=== PATIENT | female | born 1970 | race Caucasian/White ===

== ENCOUNTER 2019-08-01 17:42 | Emergency (ER) | payer MEDICARE, SELFPAY ==
--- NOTE | ~2019-08-01 | XR_ITS ---
EXAMINATION: XR knee RT 3V DATE: 08/01/2019 18:35 INDICATION: 2 days of infrapatellar anterior right knee pain TECHNIQUE: Anteroposterior, oblique and crosstable lateral views of the right knee were obtained COMPARISON: None. FINDINGS: Alignment is normal. No fracture. No joint effusion/layering lipohemarthrosis. Joint space narrowing and prominent marginal osteophytes at the patellofemoral compartment. There is also a central subcho ndral osteophyte along the trochlear groove. Additional small to moderate marginal osteophytes in the medial and lateral compartments. There is at least mild joint space narrowing the medial compartment although severity of joint space narrowing can be underestimated on nonweightbearing imaging. Soft t issues are unremarkable. IMPRESSION: 1. Tricompartmental osteoarthritis at the right knee, moderate to severe in the patellofemoral compar tment. Reviewed, dictated and finalized at location A. TRICIAN YARD IMPRESSION: 1. Tricompartmental osteoarthritis at the right knee, moderate to severe in the patellofemoral compartment.
[2019-08-01 18:11] VITALS: BP 113/57; PULSE 75; RESP 17; TEMP 37.1; O2SAT 100
[2019-08-01] MEDS: IBUPROFEN 400 MG TABLET 800 MG PO (18:33)
--- NOTE | 2019-08-01 19:13 | ED.GENADULT ---
HPI - General Adult General Chief complaint: Urogenital-Female Stated complaint: R KNEE PAIN X2D Time Seen by Provider: 08/01/19 18:04 History of Present Illness HPI narrative: Patient is a 49-year-old female who presents the ER with right knee pain. She was standing on her couch couple days ago putting up curtains is unsure if she injured it at that time. It took 2 days until she developed the knee pain across the anterior joint line of the right knee. She has chronic lower extremity numbness from her diabetic neuropathy but has no new numbness. She is without any chest pain/shortness of breath/erythema to the right lower extremity or calf pain. Pain is better with resting. Patient also reports urinary frequency and urgency as well as dysuria. She is afebrile. Related Data Home Medications Medication Instructions Recorded Confirmed ascorbic acid (vitamin C) 1,500 mg 2,000 mg PO DAILY 04/06/19 05/17/19 tablet,extended release diazepam 5 mg tablet 5 mg PO TID PRN 04/06/19 05/17/19 aspirin 325 mg tablet 325 mg PO DAILY 04/08/19 05/17/19 blood sugar diagnostic #10 each 04/08/19 05/17/19 calcium carbonate 600 mg calcium 600 mg PO DAILY 04/08/19 05/17/19 (1,500 mg) tablet carbamazepine 300 mg 400 mg PO BID cap 04/08/19 05/17/19 capsule,extended release [id number] cholecalciferol (vitamin D3) 10 400 unit PO BID cap 04/08/19 05/17/19 mcg (400 unit) capsule duloxetine 60 mg capsule,delayed 60 mg PO DAILY 04/08/19 05/17/19 release multivitamin 1 tablet PO DAILY 04/08/19 05/17/19 quetiapine 400 mg tablet,extended 600 mg PO QPM tablet 04/08/19 05/17/19 release 24 hr sertraline 100 mg tablet 100 mg PO BID tablet 04/08/19 05/17/19 sumatriptan succinate 100 mg tablet 100 mg PO ONCE PRN 04/08/19 05/17/19 vitamin B complex 100 2-herbs 100 100 tablet PO DAILY 04/08/19 05/17/19 mg tablet Adults Multivitamin 1 tab-cap PO DAILY 05/17/19 05/17/19 Allergies Allergy/AdvReac Type Severity Reaction Status Date / Time cephalexin Allergy Severe Violently Verified 04/10/19 14:47 ill Sulfa (Sulfonamide Allergy Mild Unknown Verified 05/17/19 19:13 Antibiotics) buspirone Allergy Unknown Unknown Verified 05/17/19 19:13 ephedrine Allergy Unknown Unknown Verified 05/17/19 19:13 hydrocodone [From Vicodin] Allergy eyes swell Verified 04/10/19 14:47 sibutramine [From Meridia] Allergy unknown Verified 04/10/19 14:47 sulfite Allergy Unknown Verified 04/10/19 14:47 tramadol Allergy seizure Verified 04/10/19 14:47 Review of Systems Review of Systems: All systems reviewed & are unremarkable except as noted in HPI and below Constitutional: Constitutional: Denies fever(s) and Denies headache(s) Musculoskeletal: Musculoskeletal: Denies deformity, Reports arthralgias, Denies joint swelling, Denies muscle cramps, Denies muscle weakness and Reports numbness (chronic) Psychiatric: Psychiatric: Reports anxiety PMFSH Social History Social History Social History: The patient lives at home with her of 21 years. She is on disability. She is a former smoker and used to smoke 2 and half packs of cigarettes a day for 17 years. She quit smoking in 1994. She stated that she started smoking at 8 years of age. She quit drinking alcohol altogether 1993. She denies a history of heavy alcohol use in the past. She denies any illicit substance use history. Smoking packs per day: 2 Smoking cigarettes per day: 40.0 Years smoked: 17 Smoking pack-years: 34.00 Smoking status: Former smoker Tobacco type: cigarettes Second hand tobacco smoke exposure: Yes Smoking end date: 06/06/96 Alcohol intake: never Substance use: never Gender identity (if verbalized by the patient): Female Spiritual care concerns: No Agree to blood products: No Exam Narrative: Exam Narrative: GENERAL: Well-appearing, morbidly obese, and in no acute distress. HEAD: Normoceph
[2019-08-01 19:17] LABS: Add Urine Microscopic? YES; Appearance Urine Clear (Clear); Bilirubin Urine Negative (Negative); Blood Urine Negative (Negative); Color Urine Yellow (Yellow); Glucose Urine UA Negative (Negative); Ketones Urine Negative (Negative); Leukocyte Esterase Ur Negative LEU/UL (Negative); Mucus Urine Rare /lpf; Nitrate Urine Negative (Negative); Protein Urine Negative (Negative); RBC Urine 0-2 /hpf (0-2); Specific Grav Ur 1.014 (1.001-1.035); Squamous Epithelial Cell Urine Rare /hpf (Few); Urobilinogen Urine Negative mg/dL (<2.0); WBC Urine 0-3 /hpf
[2019-08-01] MEDS: LORAZEPAM 0.5 MG TABLET PO (19:28)
[2019-08-01 19:46] VITALS: BP 113/56; PULSE 76; RESP 16; TEMP 36.8; O2SAT 100
== END 2019-08-01 19:48 | disposition home or self-care (01) ==
PROVIDERS: Emergency Provider Emergency Medicine; PCP Internal Medicine
DX: M25.561 Pain in right knee (principal); Z87.891 Personal history of nicotine dependence
CPT/HCPCS: 51701; 73562; 81001; 99283; A9270

== ENCOUNTER 2019-10-05 13:33 | Outpatient (CLI) | payer MEDICARE, SELFPAY ==
[2019-10-08 20:57] LABS: Alpha-1-Antitrypsin, QN 150 mg/dL (83-199)
== END 2019-10-05 13:34 | disposition home or self-care (01) ==
PROVIDERS: PCP Internal Medicine; Visit Provider Internal Medicine Critical Care Medicine
DX: J44.9 Chronic obstructive pulmonary disease, unspecified (principal)
CPT/HCPCS: 36415; 82103; 82104

== ENCOUNTER 2019-11-28 11:28 | Outpatient (CLI) | payer MEDICARE, SELFPAY ==
--- NOTE | ~2019-11-28 | XR_ITS ---
XR tibia fibula RT 2V DATE: 11/28/2019 12:30 INDICATION: Leg pain TECHNIQUE: AP and lateral views COMPARISON: None FINDINGS: There are osteoarthritic changes at the knee joint including periarticular spurring at the medial and lateral compartments. Normal alignment at the knee and ankle joints. No fracture, dislocat ion, periosteal reaction or bone destruction. IMPRESSION: Osteoarthritis at the knee Reviewed, dictated and finalized at location A. IMPRESSION: Osteoarthritis at the knee
[2019-11-28 12:29] LABS: Add Urine Microscopic? NO; Appearance Urine Clear (Clear); Bilirubin Urine Negative (Negative); Blood Urine Negative (Negative); Color Urine Yellow (Yellow); Glucose Urine UA Negative (Negative); Ketones Urine Negative (Negative); Leukocyte Esterase Ur Negative LEU/UL (Negative); Nitrate Urine Negative (Negative); Protein Urine Negative (Negative); Specific Grav Ur 1.021 (1.001-1.035); Urobilinogen Urine Negative mg/dL (<2.0)
[2019-11-28 12:54] LABS: Erythrocyte Sedimentation Rate > 140 mm/hr (0-20)
[2019-11-28 13:20] LABS: Alanine Aminotransferase 17 U/L (4-35); Albumin Level 4.3 g/dL (3.5-5.1); Alkaline Phosphatase 131 U/L (38-126); Aspartate Amino Transferase 23 U/L (14-36); Bilirubin,Total 0.2 mg/dL (0.2-1.3); Blood Urea Nitrogen 29 mg/dL (7-17); Calcium 10.2 mg/dL (8.4-10.2); Carbon Dioxide 27 mmol/L (22-30); Chloride 105 mmol/L (98-107); Cholesterol 259 mg/dL (0-200); Estimated Glomerular Filt Rate 59; Glucose 130 mg/dL (65-105); HDL Direct 43 mg/dL; Potassium 4.9 mmol/L (3.4-5.0); Sodium 139 mmol/L (137-145); Triglycerides 512 mg/dL (<150)
[2019-11-28 13:25] LABS: Creatinine Urine 112.1 mg/dL
[2019-11-28 13:27] LABS: MALB Creatinine Ratio < 5.4 mg/g (0-30); Microalbumin Urine Random < 6.0 mg/L (0-16.7)
[2019-11-28 13:32] LABS: LDL Cholesterol Direct 89 mg/dL
[2019-11-28 16:57] LABS: Hemoglobin A1C 6.6 % (<5.7)
[2019-11-28 18:53] LABS: Folic Acid > 20.0 ng/mL (2.76->20)
== END 2019-11-28 11:29 | disposition home or self-care (01) ==
PROVIDERS: PCP Internal Medicine; Visit Provider Internal Medicine
DX: R30.0 Dysuria (principal); M79.606 Pain in leg, unspecified; M79.10 Myalgia, unspecified site; E11.9 Type 2 diabetes mellitus without complications; E78.5 Hyperlipidemia, unspecified; R53.83 Other fatigue; M17.11 Unilateral primary osteoarthritis, right knee
CPT/HCPCS: 36415; 73590; 80053; 80061; 81003; 82043; 82607; 82746; 83036; 84443; 85652; 86038

== ENCOUNTER 2020-04-09 15:34 | Emergency (ER) | payer MEDICARE, SELFPAY ==
[2020-04-09 15:38] VITALS: BP 137/84; PULSE 81; RESP 16; TEMP 36.4; O2SAT 98
--- NOTE | 2020-04-09 16:00 | ED.GENADULT ---
HPI - General Adult General Chief complaint: Animal Bite Stated complaint: cat bite Time Seen by Provider: 04/09/20 15:40 Source: patient Mode of arrival: ambulatory Limitations: no limitations History of Present Illness HPI narrative: Patient presents with chief complaint of swelling and pain to the anterior posterior aspect of her left ring finger that began after being bit by her cat last night. Patient states that she noticed the swelling and increased pain this morning. Patient states that she was able to make a small krystal in the finger and pus was expressed but there feels like there is more. She called her primary care and was instructed to come to the emergency department for I&D as she has diabetes and is prone to worsen infection. Patient states that she is about amoxicillin and cephalexin. Patient denies fever, chills, nausea, vomiting, diarrhea or any other symptoms. Patient states that she is not up-to-date on tetanus. Related Data Home Medications Medication Instructions Recorded Confirmed diazepam 5 mg tablet 5 mg PO TID PRN 04/06/19 04/04/20 blood sugar diagnostic #10 each 04/08/19 03/14/20 carbamazepine 300 mg 400 mg PO BID cap 04/08/19 04/04/20 capsule,extended release [id number] duloxetine 60 mg capsule,delayed 60 mg PO DAILY 04/08/19 04/04/20 release diphenhydramine HCl 25 mg capsule 25 mg PO TID PRN 03/17/20 04/04/20 cholecalciferol (vitamin D3) 50 50 mcg PO DAILY 04/04/20 04/04/20 mcg (2,000 unit) capsule montelukast 10 mg tablet 10 mg PO DAILY 04/04/20 04/04/20 quetiapine 300 mg tablet 300 mg PO DAILY tablet 04/04/20 04/04/20 sertraline 100 mg tablet 100 mg PO DAILY 04/04/20 04/04/20 sumatriptan succinate 100 mg tablet 100 mg PO Q2-4H tablet 04/04/20 04/04/20 vitamin B complex 1 tablet PO DAILY 04/04/20 04/04/20 Allergies Allergy/AdvReac Type Severity Reaction Status Date / Time shellfish derived Allergy Mild unknown Verified 04/09/20 16:05 amoxicillin Allergy Unknown unknown Verified 04/09/20 16:05 buspirone [From BuSpar] Allergy Unknown unknown Verified 04/09/20 16:05 cephalexin [From Keflex] Allergy Unknown Unknown Verified 04/09/20 16:05 Review of Systems Review of Systems: Narrative: CONSTITUTIONAL: Denies fever, chills, or sweats. EYES: Denies visual changes, redness, or discharge. ENT: Denies rhinorrhea, congestion, sore throat, or otalgia. CARDIOVASCULAR: Denies chest pain, palpitations, or edema. RESPIRATORY: Denies cough or dyspnea. GASTROINTESTINAL: Denies abdominal pain, nausea, vomiting, or diarrhea. GENITOURINARY: Denies dysuria or hematuria. SKIN: Reports swollen finger denies rash or itching. MUSCULOSKELETAL: Denies back pain, joint pain, or myalgia. NEUROLOGIC: Denies headache, numbness, dizziness, or weakness. PSYCHIATRIC: Denies anxiety or depression. [facility] Past Medical History Medical History Abnormal CT scan, kidney Allergic rhinitis Anal fissure Noted on colonoscopy from December of [address] Rodriguez Anemia Arthritis of knee, right Asthma B12 deficiency Bipolar disorder BMI greater than 40 Chondromalacia of right patellofemoral joint Chronic anemia COPD (chronic obstructive pulmonary disease) PFTs 2011 demonstrated mild obstructive disease Cystitis Degenerative joint disease of knee Depression Diabetes Echocardiogram abnormal Echocardiogram October 2014 demonstrated EF of 60-65% with elevated right atrial pressures of 10-15 mmHg Eczema Essential (primary) hypertension Fatigue Gastro-esophageal reflux disease without esophagitis Health care maintenance Hepatosplenomegaly On imaging from November 2017 Herpes simplex type 2 infection Hyperlipidemia Injury of right thigh Internal hemorrhoids On colonoscopy from December 2014 Kidney stones Knee joint effusion Knee sprain Morbid obesity with BMI of 50.0-59.9, adult Multiple personality disorder Per patient report Myalgia Polycystic kidney disease Psychogen
[2020-04-09] MEDS: TETANUS,DIPHTHERIA,AC PERTUSSIS ADULT (0.5 ML) BOOSTRIX IM (17:01)
[2020-04-09] MEDS: KETOROLAC (*BKC) 60 MG/2 ML VIAL 30 MG IM (17:21)
[2020-04-09 18:00] VITALS: BP 137/79; PULSE 65; RESP 16; O2SAT 97
== END 2020-04-09 18:00 | disposition home or self-care (01) ==
PROVIDERS: Emergency Provider Emergency Medicine; PCP Internal Medicine
DX: L03.012 Cellulitis of left finger (principal); D64.9 Anemia, unspecified; M17.11 Unilateral primary osteoarthritis, right knee; E53.8 Deficiency of other specified B group vitamins; F31.9 Bipolar disorder, unspecified; J44.9 Chronic obstructive pulmonary disease, unspecified; E11.9 Type 2 diabetes mellitus without complications; Z79.84 Long term (current) use of oral hypoglycemic drugs; I10 Essential (primary) hypertension; E78.5 Hyperlipidemia, unspecified; Z87.442 Personal history of urinary calculi; E66.01 Morbid (severe) obesity due to excess calories; Z68.43 Body mass index [BMI] 50.0-59.9, adult; Q61.3 Polycystic kidney, unspecified; G47.30 Sleep apnea, unspecified; Z23 Encounter for immunization; K21.9 Gastro-esophageal reflux disease without esophagitis
CPT/HCPCS: 26010; 90471; 90715; 96372; 99283; J1885

== ENCOUNTER 2020-05-14 19:37 | Emergency (ER) | payer MEDICARE, SELFPAY ==
--- NOTE | ~2020-05-14 | CT_ITS ---
EXAMINATION: CT abdomen pelvis w con INDICATION: Lower abdominal pain TECHNIQUE: Computed tomographic images of the abdomen and pelvis were obtained after the administrati on of 100 cc of Omnipaque 350 intravenous contrast. The dose-length product (DLP) was 1483.48 mGy-cm. Automated exposure control and iterative reconstruction technique were employed. COMPARISON: 05/17/2019, 02/27/2013 FINDINGS: Minimal dependent atelectasis is present in the lung bases. The heart size is normal. The g allbladder is surgically absent. The liver, spleen, pancreas, and adrenal glands are normal. Cysts of the kidneys measure up to 2 cm on the left. There is a 4 mm nonobstructing stone of the right kidney . There is a 4 mm nonobstructing stone of the left kidney. A chronic 1.4 cm mildly hyperdense lesion of the right kidney upper pole is most consistent with a proteinaceous cyst. No pathologically enlarg ed abdominal or pelvic lymph nodes are identified. There is no free intraperitoneal gas or evidence o f bowel obstruction. The appendix is normal. There is severe lumbar spondylosis. IMPRESSION: 1. No CT correlate for the patient's symptoms. 2. Nonobstructing bilateral nephrolithiasis. Reviewed, dictated and finalized at location A. GRADER
[2020-05-14 19:41] VITALS: BP 126/78; PULSE 84; RESP 22; TEMP 36.3; O2SAT 100
[2020-05-14 20:42] LABS: Basophils Absolute Auto 0.1 K/mm3 (0.0-0.1); Basophils Percent Auto 0.9 % (0.2-1.2); Eosinophils Absolute Auto 0.3 K/mm3 (0-0.3); Eosinophils Percent Auto 3.1 % (0-4.4); Hemoglobin 10.8 g/dL (12.0-15.0); Immature Granulocyte Absolute 0.04 K/mm3 (0.00-0.031); Immature Granulocyte Percent A 0.5 % (0-0.5); Lymphocytes Absolute Auto 3.06 K/mm3 (0.9-3.2); Lymphocytes Percent Auto 35.3 % (18.3-44.2); Mean Corpuscular HGB Conc 32.7 g/dl (32-36); Mean Corpuscular Hemoglobin 30.3 pg (26-34); Mean Corpuscular Volume 92.7 fl (80-100); Mean Platelet Volume 8.9 fl (7.4-10.4); Monocytes Absolute Auto 0.4 K/mm3 (0.1-0.6); Monocytes Percent Auto 4.5 % (2.6-8.5); Neutrophils Absolute Auto 4.8 K/mm3 (1.3-6.7); Neutrophils Percent Auto 55.7 % (45.5-73.1); Nucleated Red Blood Cells Perc 0.2 % (0.0-0.2); Platelet Count Result 316 k/mm3 (150-375); Red Blood Count 3.56 M/mm3 (4.2-5.4); Red Cell Distribution Width 13.6 % (11.5-14.5); White Blood Count 8.7 K/mm3 (4.5-10.0)
[2020-05-14 20:45] LABS: Add Urine Microscopic? YES; Appearance Urine Clear (Clear); Bilirubin Urine Negative (Negative); Blood Urine Negative (Negative); Color Urine Straw (Yellow); Glucose Urine UA Negative (Negative); Ketones Urine Negative (Negative); Leukocyte Esterase Ur Negative LEU/UL (Negative); Mucus Urine Rare /lpf; Nitrate Urine Negative (Negative); Protein Urine Negative (Negative); Specific Grav Ur 1.011 (1.001-1.035); Squamous Epithelial Cell Urine Rare /hpf (Few); Urobilinogen Urine Negative mg/dL (<2.0); WBC Urine 0-3 /hpf
--- NOTE | 2020-05-14 20:45 | PC.NURSE ---
patient brought back to ED room 18 with probable kidney stones. hx of same. see triage notes. no change in patient's condition since triage. has been in our waiting area for a few minutes due to no available beds. alert. oriented. has friend in room.
--- NOTE | 2020-05-14 20:59 | PC.NURSE ---
SL inserted. labs drawn. urine specimen sent to lab. patient aware of current treatment plan and expected wait time.
--- NOTE | 2020-05-14 21:08 | PC.NURSE ---
call light on by family member in room. patient with reported seizure-like activity. patient with eyes open, twitching motion to head and upper limbs only. patient able to move extremities to command. no respiratory distress noted. patient placed on portable dynamap. RA sat 99%. Dr. Corrales to room. patient able to talk to staff after approximately 60 seconds. no distress. patient states she does not have a seizure disorder per her report but suffers from PTSD when my body is stressed or I am in pain .
[2020-05-14 21:15] VITALS: PULSE 100; RESP 22; O2SAT 96
[2020-05-14 21:30] VITALS: BP 142/85; PULSE 78; RESP 22; O2SAT 96
[2020-05-14 21:49] LABS: Alanine Aminotransferase 13 U/L (4-35); Albumin Level 4.2 g/dL (3.5-5.1); Alkaline Phosphatase 114 U/L (38-126); Anion Gap 4 mmol/L (8-16); Aspartate Amino Transferase 22 U/L (14-36); Bilirubin,Total 0.2 mg/dL (0.2-1.3); Blood Urea Nitrogen 22 mg/dL (7-17); Calcium 10.2 mg/dL (8.4-10.2); Carbon Dioxide 31 mmol/L (22-30); Chloride 104 mmol/L (98-107); Estimated CRCL calculation 92 ml/min; Estimated Glomerular Filt Rate > 60; Glucose 108 mg/dL (65-105); Potassium 4.2 mmol/L (3.4-5.0); Sodium 139 mmol/L (137-145)
[2020-05-14] MEDS: HYDROmorphone HCL INJ (*CRX) 1 MG/ML SYR IV PUSH (21:57)
[2020-05-14] MEDS: SODIUM CHLORIDE 0.9% IV 1,000 ML 999 ML IV CONT (21:58)
[2020-05-14] MEDS: ONDANSETRON INJ 4 MG/2 ML VIAL IV PUSH (21:58)
--- NOTE | 2020-05-14 22:11 | ED.ABDPAIN ---
HPI - Abdominal Pain General Chief Complaint: Abdominal Pain Stated Complaint: flank pain Time Seen by Provider: 05/14/20 21:03 Source: patient Mode of arrival: ambulatory Limitations: no limitations History of Present Illness HPI narrative: This patient is a 50 year old female who presents for evaluation of left flank pain. She developed pain to her left side starting yesterday. She reports her pain has continued to worsen. IT is constant and sharp. She reports her pain is worse with movement and she is tender at the location of the spot. She denies dysuria, hematuria, nausea, vomiting, fever or diarrhea. She thinks her pain may improve with urination. She also states she has had a kidney stone previously. She rates her pain 01/13. While she was waiting to be seen in ER she was witness to have had one of her psychogenic nonepileptic seizures. She was awake and alert with twitching to her arms. She reports she has these with stress or pain. Related Data Home Medications Medication Instructions Recorded Confirmed diazepam 5 mg tablet 5 mg PO TID PRN 04/06/19 04/13/20 carbamazepine 300 mg 400 mg PO BID cap 04/08/19 04/13/20 capsule,extended release [id number] duloxetine 60 mg capsule,delayed 60 mg PO DAILY 04/08/19 04/13/20 release diphenhydramine HCl 25 mg capsule 25 mg PO TID PRN 03/17/20 04/13/20 cholecalciferol (vitamin D3) 50 50 mcg PO DAILY 04/04/20 04/13/20 mcg (2,000 unit) capsule quetiapine 300 mg tablet 300 mg PO DAILY tablet 04/04/20 04/13/20 sertraline 100 mg tablet 100 mg PO DAILY 04/04/20 04/13/20 sumatriptan succinate 100 mg tablet 100 mg PO Q2-4H tablet 04/04/20 04/13/20 vitamin B complex 1 tablet PO DAILY 04/04/20 04/13/20 Allergies Allergy/AdvReac Type Severity Reaction Status Date / Time shellfish derived Allergy Mild unknown Verified 05/14/20 19:46 amoxicillin Allergy Unknown unknown Verified 05/14/20 19:46 buspirone [From BuSpar] Allergy Unknown unknown Verified 05/14/20 19:46 cephalexin [From Keflex] Allergy Unknown Unknown Verified 05/14/20 19:46 bee venom protein (honey bee) Allergy Swelling Verified 05/14/20 19:46 [bees] Review of Systems Review of Systems: All systems reviewed & are unremarkable except as noted in HPI and below Constitutional: Constitutional: Denies chills and Denies fever(s) Cardiovascular: Cardiovascular: Denies chest pain Respiratory: Respiratory: Denies cough and Denies dyspnea Genitourinary: Genitourinary: Denies hematuria and Reports flank pain PMFSH Past Medical History Medical History Abnormal CT scan, kidney Allergic rhinitis Anal fissure Noted on colonoscopy from December of [address] Rodriguez Anemia Arthritis of knee, right Asthma B12 deficiency Bipolar disorder BMI greater than 40 Chondromalacia of right patellofemoral joint Chronic anemia COPD (chronic obstructive pulmonary disease) PFTs 2011 demonstrated mild obstructive disease Cystitis Degenerative joint disease of knee Depression Diabetes Echocardiogram abnormal Echocardiogram October 2014 demonstrated EF of 60-65% with elevated right atrial pressures of 10-15 mmHg Eczema Essential (primary) hypertension Fatigue Gastro-esophageal reflux disease without esophagitis Health care maintenance Hepatosplenomegaly On imaging from November 2017 Herpes simplex type 2 infection Hyperlipidemia Injury of right thigh Internal hemorrhoids On colonoscopy from December 2014 Kidney stones Knee joint effusion Knee sprain Morbid obesity with BMI of 50.0-59.9, adult Multiple personality disorder Per patient report Myalgia Polycystic kidney disease Psychogenic nonepileptic seizure PTSD (post-traumatic stress disorder) Sleep apnea in adult With recommended CPAP 12 on polysomnogram from 2015 Strain of calf muscle Strain of right calf muscle Trochanteric bursitis, right hip UTI (urinary tract infection) Vaginal candidiasis
--- NOTE | 2020-05-14 23:01 | PC.NURSE ---
back from CT. resting on stretcher. feels better after medication. friend at bedside. waiting for CT results. patient updated on expected wait time.
--- NOTE | 2020-05-14 23:10 | PC.NURSE ---
report given to Didi JOE.
[2020-05-15 00:05] VITALS: BP 132/95; PULSE 69; RESP 18; O2SAT 99
== END 2020-05-15 00:45 | disposition home or self-care (01) ==
PROVIDERS: Emergency Medicine; Emergency Provider General Practice; PCP Internal Medicine
DX: N20.0 Calculus of kidney (principal); R10.9 Unspecified abdominal pain; Z87.891 Personal history of nicotine dependence; J45.909 Unspecified asthma, uncomplicated; F32.9 Major depressive disorder, single episode, unspecified; E11.9 Type 2 diabetes mellitus without complications; I10 Essential (primary) hypertension; K21.9 Gastro-esophageal reflux disease without esophagitis; E78.5 Hyperlipidemia, unspecified; Z87.442 Personal history of urinary calculi
CPT/HCPCS: 36415; 74177; 80053; 81001; 81025; 85025; 96361; 96374; 96375; 99284; J1170; J2405; J7030; Q9967

== ENCOUNTER 2020-06-26 13:42 | Outpatient (CLI) | payer MEDICARE, SELFPAY ==
--- NOTE | ~2020-06-26 | XR_ITS ---
EXAMINATION: XR chest 2V DATE: 06/26/2020 14:04 INDICATION: Shortness of breath. COVID-19 pneumonia. TECHNIQUE: Frontal and lateral views of the chest were obtained. COMPARISON: Chest 2 views 04/27/2019, CT abdomen and pelvis 05/14/2020 FINDINGS: There are mild airspace opacities in left midlung zone. No pleural effusion or pneumothorax . The heart size is normal. Surgical clips in the right upper quadrant are likely from cholecystectom y. IMPRESSION: 1. Mild airspace opacities in left midlung zone, consistent with atelectasis versus pneumonia. Reviewed, dictated and finalized at location B. [employer] IMPRESSION: 1. Mild airspace opacities in left midlung zone, consistent with atelectasis ve rsus pneumonia.
== END 2020-06-26 13:43 | disposition home or self-care (01) ==
PROVIDERS: Family Provider Internal Medicine; PCP Internal Medicine; Referring Provider Nurse Practitioner Family; Visit Provider Physician Assistant
DX: U07.1 COVID-19 (principal); R06.02 Shortness of breath; R91.8 Other nonspecific abnormal finding of lung field
CPT/HCPCS: 71046

== ENCOUNTER 2020-10-28 10:47 | Outpatient (CLI) | payer MEDICARE, SELFPAY ==
[2020-10-28 11:17] LABS: Basophils Percent Auto 0.3 % (0.2-1.2); Eosinophils Absolute Auto 0.1 K/mm3 (0-0.3); Eosinophils Percent Auto 2.2 % (0-4.4); Hematocrit 32.2 % (37.0-47.0); Hemoglobin 10.2 g/dL (12.0-15.0); Immature Granulocyte Absolute 0.02 K/mm3 (0.00-0.031); Immature Granulocyte Percent A 0.3 % (0-0.5); Lymphocytes Absolute Auto 1.83 K/mm3 (0.9-3.2); Lymphocytes Percent Auto 30.7 % (18.3-44.2); Mean Corpuscular HGB Conc 31.7 g/dl (32-36); Mean Corpuscular Hemoglobin 30.4 pg (26-34); Mean Corpuscular Volume 95.8 fl (80-100); Mean Platelet Volume 8.5 fl (7.4-10.4); Monocytes Absolute Auto 0.3 K/mm3 (0.1-0.6); Monocytes Percent Auto 5.2 % (2.6-8.5); Neutrophils Absolute Auto 3.7 K/mm3 (1.3-6.7); Neutrophils Percent Auto 61.3 % (45.5-73.1); Platelet Count Result 274 k/mm3 (150-375); Red Blood Count 3.36 M/mm3 (4.2-5.4); Red Cell Distribution Width 13.4 % (11.5-14.5)
[2020-10-28 11:27] LABS: Alanine Aminotransferase 15 U/L (4-35); Albumin Level 4.1 g/dL (3.5-5.1); Alkaline Phosphatase 95 U/L (38-126); Anion Gap 6 mmol/L (8-16); Aspartate Amino Transferase 26 U/L (14-36); Bilirubin,Total < 0.1 mg/dL (0.2-1.3); Blood Urea Nitrogen 22 mg/dL (7-17); Calcium 9.8 mg/dL (8.4-10.2); Carbon Dioxide 30 mmol/L (22-30); Chloride 107 mmol/L (98-107); Cholesterol 217 mg/dL (0-200); Estimated Glomerular Filt Rate 58; Glucose 98 mg/dL (65-105); HDL Direct 49 mg/dL; Potassium 4.7 mmol/L (3.4-5.0); Sodium 143 mmol/L (137-145); Triglycerides 415 mg/dL (<150)
[2020-10-28 11:39] LABS: LDL Cholesterol Direct 79 mg/dL
[2020-10-28 12:23] LABS: Creatinine Urine 70.2 mg/dL
[2020-10-28 12:40] LABS: Folic Acid > 20.0 ng/mL (2.76->20)
[2020-10-28 13:15] LABS: MALB Creatinine Ratio < 8.5 mg/g (0-30); Microalbumin Urine Random < 6.0 mg/L (0-16.7)
[2020-10-28 13:31] LABS: Hemoglobin A1C 5.7 % (<5.7)
== END 2020-10-28 10:48 | disposition home or self-care (01) ==
LOC: ANHLAB 10:54
PROVIDERS: PCP Internal Medicine; Visit Provider Internal Medicine
DX: D64.9 Anemia, unspecified (principal); E11.9 Type 2 diabetes mellitus without complications; R53.83 Other fatigue
CPT/HCPCS: 36415; 80053; 80061; 82043; 82607; 82746; 83036; 84443; 85025

== ENCOUNTER 2020-11-02 09:01 | Outpatient (CLI) | payer MEDICARE, SELFPAY ==
--- NOTE | ~2020-11-02 | MR_ITS ---
EXAMINATION: MR brain/brain stem wo/w con DATE: 11/02/2020 10:35 INDICATION: Dizziness and giddiness. TECHNIQUE: Magnetic resonance imaging (MRI) of the brain and brainstem was performed without and with 20 mL MultiHance intravenous contrast. Sequences included sagittal and axial T1-weighted FSE, axial diffusion-weighted FS EPI, axial T2*-weighted GRE, axial T2-weighted FLAIR Propeller, and axial T2-we ighted Propeller. Postcontrast sequences included axial and coronal T1-weighted FSE. Apparent diffusi on coefficient (ADC) maps were created. COMPARISON: None. FINDINGS: There is no intracranial hemorrhage, acute infarction, or abnormal intracranial mass lesion . The ventricles are normal in size. The paranasal sinuses are clear. The orbits are normal. The mast oid air cells are normal. IMPRESSION: 1. Normal brain. Reviewed, dictated and finalized at location A. IMPRESSION: 1. Normal brain.
== END 2020-11-02 09:02 | disposition home or self-care (01) ==
PROVIDERS: PCP Internal Medicine; Visit Provider Internal Medicine
DX: R42 Dizziness and giddiness (principal); H91.90 Unspecified hearing loss, unspecified ear
CPT/HCPCS: 70553; A9577

== ENCOUNTER 2020-11-19 16:25 | Emergency (ER) | payer MEDICARE, SELFPAY ==
--- NOTE | ~2020-11-19 | CT_ITS ---
EXAMINATION: CT abdomen pelvis wo con DATE: 11/19/2020 19:22 INDICATION: Left flank pain TECHNIQUE: Computed tomography (CT) of the abdomen and pelvis was performed without intravenous contr ast. Automated exposure control and iterative reconstruction technique were employed. Exam dose: 109 4.55 mGy-cm total exam DLP. COMPARISON: 05/14/[address] abdomen pelvis FINDINGS: 5 mm left lower lobe pulmonary nodule (series 4 image 19). Several small calcified right and left lower lobe pulmonary granulomas. No infiltrate or consolidation in the included lower lung zones. Normal heart size. No pericardial or pleural effusion. Status post cholecystectomy. The liver, spleen, pancreas, adrenal glands are unremarkable. Irregularity of the renal outlines, consistent with chronic pyelonephritis or less likely persistent lobation. 3.5 mm nonobstructing lower pole right renal calculus. Pinpoint nonobstructing upper pole renal calcification. 2 x 6 mm linear calcification at left renal hilar area may be a calculus or arterial calcification. No ureteral calculus or hydroureteronephrosis. Normal caliber of the abdominal aorta. No intraperitoneal or retroperitoneal or pelvic mass lesion or adenopathy or ascites. The urinary bladder is unremarkable. Status post hysterectomy. Normal appendix. No bowel obstruction, bowel wall thickening, pneumatosis or intraperitoneal free air is detected. Severe degenerative disc disease and mild retrolisthesis at L5-S1. There is degenerative change at th e apophyseal joints, associated grade 1 anterolisthesis at L4-5. No suspicious osteolytic or osteoblastic lesions are noted. IMPRESSION: 5 mm left lower lobe pulmonary nodule Old pulmonary granulomatous disease Status post cholecystectomy Irregular renal outlines, most likely due to chronic pyelonephritis, less likely persistent lob ation Bilateral nonobstructive minimal nephrolithiasis Status post hysterectomy Reviewed, dictated and finalized at Location A. Reviewed, dictated and finalized at location A. IMPRESSION: 5 mm left lower lobe pulmonary nodule Old pulmonary granulomatous disease Status post cholecystectomy Irregular renal outlines, most likely due to chronic pyelonephritis, less likel y persistent lobation Bilateral nonobstructive minimal nephrolithiasis Status post hysterectomy
[2020-11-19 16:32] VITALS: BP 134/87; PULSE 92; RESP 21; TEMP 36.3; O2SAT 100
[2020-11-19 16:46] LABS: Basophils Absolute Auto 0.1 K/mm3 (0.0-0.1); Basophils Percent Auto 0.9 % (0.2-1.2); Eosinophils Absolute Auto 0.1 K/mm3 (0-0.3); Eosinophils Percent Auto 1.9 % (0-4.4); Hematocrit 33.7 % (37.0-47.0); Hemoglobin 10.9 g/dL (12.0-15.0); Immature Granulocyte Absolute 0.03 K/mm3 (0.00-0.031); Immature Granulocyte Percent A 0.4 % (0-0.5); Lymphocytes Absolute Auto 1.73 K/mm3 (0.9-3.2); Lymphocytes Percent Auto 23.3 % (18.3-44.2); Mean Corpuscular HGB Conc 32.3 g/dl (32-36); Mean Corpuscular Hemoglobin 30.3 pg (26-34); Mean Corpuscular Volume 93.6 fl (80-100); Mean Platelet Volume 8.6 fl (7.4-10.4); Monocytes Absolute Auto 0.3 K/mm3 (0.1-0.6); Monocytes Percent Auto 4.6 % (2.6-8.5); Neutrophils Absolute Auto 5.1 K/mm3 (1.3-6.7); Neutrophils Percent Auto 68.9 % (45.5-73.1); Platelet Count Result 291 k/mm3 (150-375); White Blood Count 7.4 K/mm3 (4.5-10.0)
[2020-11-19 16:57] LABS: Alanine Aminotransferase 19 U/L (4-35); Albumin Level 4.3 g/dL (3.5-5.1); Alkaline Phosphatase 113 U/L (38-126); Anion Gap 9 mmol/L (8-16); Aspartate Amino Transferase 26 U/L (14-36); Bilirubin,Total < 0.1 mg/dL (0.2-1.3); Blood Urea Nitrogen 20 mg/dL (7-17); Calcium 9.5 mg/dL (8.4-10.2); Carbon Dioxide 27 mmol/L (22-30); Chloride 106 mmol/L (98-107); Estimated CRCL calculation 92 ml/min; Estimated Glomerular Filt Rate > 60; Glucose 125 mg/dL (65-105); Lipase 155 U/L (23-300); Potassium 4.6 mmol/L (3.4-5.0); Sodium 142 mmol/L (137-145)
[2020-11-19 17:53] LABS: Add Urine Microscopic? NO; Appearance Urine Clear (Clear); Bilirubin Urine Negative (Negative); Blood Urine Negative (Negative); Color Urine Straw (Yellow); Glucose Urine UA Negative (Negative); Ketones Urine Negative (Negative); Leukocyte Esterase Ur Negative LEU/UL (Negative); Nitrate Urine Negative (Negative); Protein Urine Negative (Negative); Specific Grav Ur 1.009 (1.001-1.035); Urobilinogen Urine Negative mg/dL (<2.0)
[2020-11-19 20:43] VITALS: BP 125/83; PULSE 81; RESP 18; TEMP 36.7; O2SAT 100
--- NOTE | 2020-11-19 20:48 | ED.ABDPAIN ---
HPI - Abdominal Pain General Chief Complaint: Abdominal Pain Stated Complaint: Nausea, Vomiting, Pain all Over Time Seen by Provider: 11/19/20 18:52 Source: patient Mode of arrival: ambulatory Limitations: no limitations History of Present Illness HPI narrative: 50-year-old with a history of hypertension, diabetes, morbid obesity here with complaints of left flank pain for past few days. Patient states that she had nausea and vomiting she called her primary doctor who prescribed her Zofran which helped her with nausea and vomiting however now has persistent left flank pain. She states 2 days ago she had a fever none since this morning. She denies any blood in the urine. MD elicited complaint: flank pain (left) Pertinent past history: kidney stones Onset (ago): day(s) (1) Pain Consistency: constant Location: none and L flank Severity: moderate Quality: aching Radiation: L flank Migration to: no migration Exacerbating factors: nothing Relieving factors: nothing Related Data Home Medications Medication Instructions Recorded Confirmed diazepam 5 mg tablet 5 mg PO TID PRN 04/06/19 10/07/20 carbamazepine 300 mg 400 mg PO BID cap 04/08/19 10/07/20 capsule,extended release [id number] duloxetine 60 mg capsule,delayed 60 mg PO DAILY 04/08/19 10/07/20 release diphenhydramine HCl 25 mg capsule 25 mg PO TID PRN 03/17/20 10/07/20 cholecalciferol (vitamin D3) 50 50 mcg PO DAILY 04/04/20 10/07/20 mcg (2,000 unit) capsule quetiapine 300 mg tablet 300 mg PO DAILY tablet 04/04/20 10/07/20 sertraline 100 mg tablet 100 mg PO DAILY 04/04/20 10/07/20 vitamin B complex 1 tablet PO DAILY 04/04/20 10/07/20 Allergies Allergy/AdvReac Type Severity Reaction Status Date / Time shellfish derived Allergy Mild unknown Verified 11/19/20 20:44 amoxicillin Allergy Unknown unknown Verified 11/19/20 20:44 buspirone [From BuSpar] Allergy Unknown unknown Verified 11/19/20 20:44 cephalexin [From Keflex] Allergy Unknown Unknown Verified 11/19/20 20:44 bee venom protein (honey bee) Allergy Swelling Verified 11/19/20 20:44 [bees] Review of Systems Review of Systems: All systems reviewed & are unremarkable except as noted in HPI and below Constitutional: Constitutional: Reports no additional constitutional complaints Eyes: Eyes: Reports no additional eye complaints ENT: Reports system reviewed and no additional complaints, except as documented Cardiovascular: Cardiovascular: Reports no additional cardiovascular complaints Respiratory: Respiratory: Reports no additional respiratory complaints Gastrointestinal: Gastrointestinal: Reports no additional gastrointestinal complaints Genitourinary: Genitourinary: Reports as per HPI Musculoskeletal: Musculoskeletal: Reports no additional musculoskeletal complaints Neurologic: Reports system reviewed and no additional complaints, except as documented [facility] Past Medical History Medical History Abnormal CT scan, kidney Allergic rhinitis Anal fissure Noted on colonoscopy from December of [address] Rodriguez Anemia Anxiety Arthritis of knee, right Asthma B12 deficiency Bipolar disorder Chondromalacia of right patellofemoral joint Chronic anemia COPD (chronic obstructive pulmonary disease) PFTs 2011 demonstrated mild obstructive disease Cystitis Degenerative joint disease of knee Depression Diabetes Echocardiogram abnormal Echocardiogram October 2014 demonstrated EF of 60-65% with elevated right atrial pressures of 10-15 mmHg Eczema Essential (primary) hypertension Fatigue Former smoker Quit 1995 age 29; highest amount was 1.5 ppd for up to 19 years, 45 pack years. Gastro-esophageal reflux disease without esophagitis Health care maintenance Hepatosplenomegaly On imaging from November 2017 Herpes simplex type 2 infection Hyperlipidemia Injury of right thigh Internal hemorrhoids On colonoscopy from December 2014 Kidney stones Knee effu
== END 2020-11-19 21:09 | disposition home or self-care (01) ==
PROVIDERS: Emergency Medicine; Emergency Provider Family Medicine; PCP Internal Medicine
DX: R10.9 Unspecified abdominal pain (principal); E11.9 Type 2 diabetes mellitus without complications; I10 Essential (primary) hypertension; D64.9 Anemia, unspecified; E66.01 Morbid (severe) obesity due to excess calories; Z68.43 Body mass index [BMI] 50.0-59.9, adult; J44.9 Chronic obstructive pulmonary disease, unspecified; K21.9 Gastro-esophageal reflux disease without esophagitis; E78.5 Hyperlipidemia, unspecified; Q61.3 Polycystic kidney, unspecified; G47.30 Sleep apnea, unspecified; F31.9 Bipolar disorder, unspecified; F41.9 Anxiety disorder, unspecified; M17.11 Unilateral primary osteoarthritis, right knee; Z87.440 Personal history of urinary (tract) infections; Z87.891 Personal history of nicotine dependence; Z87.442 Personal history of urinary calculi; R91.1 Solitary pulmonary nodule; N20.0 Calculus of kidney; R93.429 Abnormal radiologic findings on diagnostic imaging of unspecified kidney; Z79.84 Long term (current) use of oral hypoglycemic drugs
CPT/HCPCS: 36415; 74176; 80053; 81003; 83690; 85025; 99284

== ENCOUNTER 2021-01-22 13:32 | Outpatient (CLI) | payer MEDICARE, SELFPAY ==
[2021-01-22 13:59] LABS: Basophils Absolute Auto 0.1 K/mm3 (0.0-0.1); Basophils Percent Auto 0.6 % (0.2-1.2); Eosinophils Absolute Auto 0.2 K/mm3 (0-0.3); Eosinophils Percent Auto 1.7 % (0-4.4); Hematocrit 32.9 % (37.0-47.0); Hemoglobin 10.4 g/dL (12.0-15.0); Immature Granulocyte Absolute 0.02 K/mm3 (0.00-0.031); Immature Granulocyte Percent A 0.2 % (0-0.5); Lymphocytes Absolute Auto 1.94 K/mm3 (0.9-3.2); Lymphocytes Percent Auto 22.4 % (18.3-44.2); Mean Corpuscular HGB Conc 31.6 g/dl (32-36); Mean Corpuscular Hemoglobin 30.6 pg (26-34); Mean Corpuscular Volume 96.8 fl (80-100); Mean Platelet Volume 8.9 fl (7.4-10.4); Monocytes Absolute Auto 0.4 K/mm3 (0.1-0.6); Monocytes Percent Auto 4.8 % (2.6-8.5); Neutrophils Absolute Auto 6.1 K/mm3 (1.3-6.7); Neutrophils Percent Auto 70.3 % (45.5-73.1); Platelet Count Result 280 k/mm3 (150-375); Red Cell Distribution Width 13.4 % (11.5-14.5); White Blood Count 8.7 K/mm3 (4.5-10.0)
[2021-01-22 14:10] LABS: Add Urine Microscopic? YES; Appearance Urine Cloudy (Clear); Bacteria Urine Trace /hpf; Bilirubin Urine Negative (Negative); Blood Urine 1+ (Negative); Color Urine Yellow (Yellow); Glucose Urine UA Negative (Negative); Ketones Urine Negative (Negative); Leukocyte Esterase Ur 3+ LEU/UL (NEGATIVE); Nitrate Urine Negative (Negative); Protein Urine Negative (Negative); Specific Grav Ur 1.011 (1.001-1.035); Squamous Epithelial Cell Urine Occasional /hpf (Few); Urobilinogen Urine Negative mg/dL (<2.0); WBC Urine >75 /hpf (0-3)
[2021-01-22 15:11] LABS: Iron 55 ug/dL (37-170)
[2021-01-22 15:21] LABS: Percent Iron Saturation 18 % (20-50)
== END 2021-01-22 13:33 | disposition home or self-care (01) ==
PROVIDERS: PCP Internal Medicine; Referring Provider Physician Assistant; Visit Provider Internal Medicine
DX: D64.9 Anemia, unspecified (principal); R30.0 Dysuria
CPT/HCPCS: 36415; 81001; 83540; 83550; 85025; 87077; 87086; 87088; 87186

== ENCOUNTER 2021-04-17 16:40 | Outpatient (CLI) | payer MEDICARE, SELFPAY ==
--- NOTE | ~2021-04-17 | US_ITS ---
EXAMINATION: US thyroid DATE: 04/17/2021 17:27 INDICATION: Nontoxic single thyroid nodule. TECHNIQUE: Multiple ultrasound images of the thyroid were obtained. COMPARISON: Ultrasound 12/05/2017 FINDINGS: The right thyroid lobe measures 5.9 x 2.4 x 2.5 cm. The left thyroid lobe measures 6.7 x 2.4 x 2.4 c m. There are numerous nodules in the thyroid. In the right thyroid lobe, there is a 15 mm solid, hyp oechoic, iavfb-miva-srdw nodule with ill-defined margin and peripheral calcifications (TI-RADS TR4). In the right thyroid lobe, there is a 14 mm solid, hypoechoic, twpcd-gkly-iqtf nodule with ill-define d margin with peripheral calcifications (TR4). In the right thyroid lobe, there is a 15 mm solid, hyp oechoic, yzmbz-raev-drri nodule with ill-defined margin with peripheral calcifications (TR4). In the left thyroid lobe, there is a 2.1 cm mixed solid and cystic, hypoechoic, ckhbo-hfoh-sdyi nodule with smooth margin without echogenic foci (TR3). In the left thyroid lobe, there is an 11 mm solid, isoech oic, ohnkq-qqmd-dtro nodule with ill-defined margin with peripheral calcifications (TR4). In the left thyroid lobe, there is a 2.2 cm mixed cystic and solid, hypoechoic, atoof-cvjc-gfnj nodule with smoo th margin without echogenic foci (TR3). IMPRESSION: 1. Multinodular goiter. Ultrasound-guided fine-needle aspiration of 2 nodules is recommended. Reviewed, dictated and finalized at location A. [facility] [employer] IMPRESSION: 1. Multinodular goiter. Ultrasound-guided fine-needle aspiration of 2 nodules i s recommended.
== END 2021-04-17 16:41 | disposition home or self-care (01) ==
LOC: ANHIMG 16:41
PROVIDERS: PCP Internal Medicine; Visit Provider Internal Medicine
DX: E04.2 Nontoxic multinodular goiter (principal)
CPT/HCPCS: 76536

== ENCOUNTER 2021-05-26 07:53 | Outpatient (CLI) | payer MEDICARE, SELFPAY ==
--- NOTE | 2021-06-15 15:20 | WPDSLEEPSTUD ---
Sleep Study Date of Study: 05/26/21 <Rachel Naqvi DO - Last Filed: 06/16/21 12:10> Ordering Provider: Osito Jacobson PA-C <Rachel Naqvi, DO - Last Filed: 06/16/21 12:10> Interpreting Physician: Rachel Naqvi DO <Rachel Naqvi, DO - Last Filed: 06/16/21 12:10> Sleep Study Type: CPAP Titration <Rachel Naqvi DO - Last Filed: 06/16/21 12:10> Height: 1.65 m <Rachel Navqi DO - Last Filed: 06/16/21 12:10> Weight: 142.882 kg <Rachel Naqvi DO - Last Filed: 06/16/21 12:10> Body Mass Index: 52.4 <Rachel Naqvi DO - Last Filed: 06/16/21 12:10> Neck Circumference (inches): 20.5 <Rachel Naqvi DO - Last Filed: 06/16/21 12:10> [place]: 6 <Rachel Naqvi DO - Last Filed: 06/16/21 12:10> Reason for Sleep Study The patient has known LISA and is currently on CPAP 16 cm H2O. She states that her machine is broken. Needs new supplies. <Rachel Naqvi DO - Last Filed: 06/16/21 12:10> Sleep History The patient is a 51-year-old female with hypertension, diabetes, depression, anxiety, seizure disorder, P.O.T.S, GERD and arthritis that had a PAP titration study ordered due to needing new CPAP equipment. The patient was on CPAP 16 cm H2O. The patient states that she cannot sleep without her CPAP machine. She occasionally awakens from sleep short of breath. She rarely awakens at night with heartburn, belching or cough. She occasionally snores loud enough that others complain. She constantly has trouble sleeping when she has a cold. She occasionally wakes up gasping for air throughout the night. She occasionally has breathing problems at night observed by others. She rarely notices heart palpitations or irregular heartbeats during the night. She occasionally falls asleep during the day but never while driving. She denies cataplexy. She denies having trouble at school or work due to sleepiness. She rarely feels unable to move when waking up or falling asleep. She occasionally experiences vivid dream like scenes upon awakening or falling asleep. She occasionally has nightmares. She frequently has thoughts racing through her mind. She occasionally feels sad or depressed. She frequently has anxiety. She frequently notices parts of her body jerk. She frequently kicks during the night. She frequently has crawling and aching feelings in her legs as well as leg pain during the night. She denies grinding her teeth at night and rarely awakens with morning dropped pain. He is frequently bothered by pain during the day and frequently awakened by pain during the night. She frequently wakes up feeling stiff in the morning with sore and achy muscles. She frequently wakes up with pain in the neck, spine and other joints. She goes to bed between 9 and 11:00 p.m. on both weekdays and weekends. It takes her 1-2 hours to fall asleep. She wakes up 5-6 times per night. When she wakes up, she will get up for a few minutes and then go back to sleep. She can fall asleep pretty quickly. She wakes up between 9 and 11:00 a.m. on both weekdays and weekends. She gets 8-10 hours of sleep per night. She will stay in bed for 20 minutes after waking up in the morning. She states that she will often wake up screaming from nightmares. She currently lives with her . She does not consume any caffeinated beverages within 2 hours of bedtime. She does not engage in physical exercise before bedtime. She will read and watch television before falling asleep. She will take naps in the afternoon or the evening and they are refreshing. She no longer smokes cigarettes. She does consume caffeinated beverages daily. She denies alcohol and recreational drug use. <Rachel Naqvi DO - Last Filed: 06/16/21 12:10> [facility] Past Medical History Medical History: Medical History Abnorm
[2021-06-16 12:10] VITALS: BMI 52.4
== END 2021-05-27 06:41 | disposition home or self-care (01) ==
LOC: ANHCSM 07:54
PROVIDERS: PCP Internal Medicine; Visit Provider Physician Assistant
DX: G47.33 Obstructive sleep apnea (adult) (pediatric) (principal); F51.5 Nightmare disorder
CPT/HCPCS: 95811

== ENCOUNTER 2021-08-25 08:33 | Outpatient (CLI) | payer MEDICARE, SELFPAY ==
[2021-08-25 10:06] LABS: Free T4 Free Thyroxine 0.54 ng/mL (0.78-2.19)
[2021-08-25 10:09] LABS: Cortisol Random 5.61 ug/dL
[2021-08-27 13:56] LABS: FSH 33.2 mIU/mL (***)
[2021-08-28 06:07] LABS: Thyroid Peroxidase Antibodies <1 IU/mL (<9)
== END 2021-08-25 08:34 | disposition home or self-care (01) ==
PROVIDERS: PCP Internal Medicine
DX: E04.2 Nontoxic multinodular goiter (principal); E66.01 Morbid (severe) obesity due to excess calories; Z68.43 Body mass index [BMI] 50.0-59.9, adult; R23.2 Flushing
CPT/HCPCS: 36415; 82533; 83001; 84439; 84443; 86376

== ENCOUNTER 2021-11-18 13:00 | Outpatient (CLI) | payer MEDICARE, SELFPAY ==
--- NOTE | ~2021-11-18 | XR_ITS ---
EXAMINATION: XR shoulder LT min 2V, XR shoulder RT min 2V DATE: 11/18/2021 14:44 INDICATION: Multiple joint pain TECHNIQUE: 1. AP and axillary views of the left shoulder were obtained. 2. AP and axillary views of the right shoulder were obtained. COMPARISON: None FINDINGS: Normal alignment at both shoulders. No fracture. Glenohumeral joint is normal. Mild bilateral acromi oclavicular osteoarthritis. No erosions to suggest an inflammatory arthritis. Visualized portion of t he lungs are clear. Soft tissues are unremarkable. IMPRESSION: Mild bilateral acromioclavicular osteoarthritis. Reviewed, dictated and finalized at location A. IMPRESSION: Mild bilateral acromioclavicular osteoarthritis.
--- NOTE | ~2021-11-18 | XR_ITS ---
EXAMINATION: XR ankle LT 2V, XR ankle RT 2V, XR foot LT 2V, XR foot RT 2V DATE: 11/18/2021 14:44 INDICATION: Multiple joint pain TECHNIQUE: 1. Anteroposterior and lateral view of the right ankle were obtained. 2. Dorsoplantar and lateral views of the right foot were obtained. 3. Anteroposterior and lateral view of the left ankle were obtained. 4. Dorsoplantar and lateral views of the left foot were obtained. COMPARISON: None. FINDINGS: Alignment of the bilateral feet and ankles is normal. No fracture or osteochondral lesion. Mild osteo arthritis at the bilateral first metatarsophalangeal joints and several of the profiled interphalange al joints. Small left plantar calcaneal spur. Small enthesopathic ossicle at the distal Achilles tend on. No erosions to suggest an inflammatory arthritis. No ankle joint effusion. Soft tissue swelling a bout the left lateral malleolus. IMPRESSION: 1. Mild polyarticular osteoarthritis with typical distribution at the bilateral forefeet. Reviewed, dictated and finalized at location A. IMPRESSION: 1. Mild polyarticular osteoarthritis with typical distribution at the bilateral forefeet. IMPRESSION: 1. Mild polyarticular osteoarthritis with typical distribution at the bilateral forefeet. IMPRESSION: 1. Mild polyarticular osteoarthritis with typical distribution at the bilateral forefeet.
--- NOTE | ~2021-11-18 | XR_ITS ---
EXAM: XR knee RT 2V, XR knee LT 2V DATE: 11/18/2021 14:44 HISTORY: MULTIPLE JOINT PAIN . COMPARISON: 10/26/2021. FINDINGS: Slightly decreased mineralization. No fracture or dislocation. No lytic or blastic lesion. Moderate medial and severe lateral joint space narrowing on the right. Severe medial and mild latera l joint space narrowing on the left. Moderate bilateral tricompartmental osteophytosis, worse on the right. No erosion or periosteal change. Small-volume joint fluid bilaterally. IMPRESSION: Bilateral knee osteoarthritis, severe in the lateral compartment of the right knee and th e medial compartment of the left knee. Small bilateral knee joint effusions. Reviewed, dictated and finalized at location K. IMPRESSION: Bilateral knee osteoarthritis, severe in the lateral compartment of the right knee and the medial compartment of the left knee. Small bilateral kn ee joint effusions.
--- NOTE | ~2021-11-18 | XR_ITS ---
EXAM: XR hip BI wo pelvis DATE: 11/18/2021 14:44 HISTORY: MULTIPLE JOINT PAIN . COMPARISON: 12/11/2019. FINDINGS: Normal mineralization. No fracture or dislocation. No lytic or blastic lesion. Mild left m oderate right superior hip joint space narrowing with subchondral sclerosis and cyst formation more p rominent on the right. Bilateral degenerative SI joint change. Mild osteitis pubis No erosion or shae osteal change. Pelvic phleboliths. IMPRESSION: Bilateral sacroiliitis. Moderate right and mild left hip osteoarthritis. Reviewed, dictated and finalized at location K. IMPRESSION: Bilateral sacroiliitis. Moderate right and mild left hip osteoarthr itis.
--- NOTE | ~2021-11-18 | XR_ITS ---
EXAMINATION: XR hand LT 2V, XR wrist RT 2V, XR wrist LT 2V, XR hand RT 2V DATE: 11/18/2021 14:44 INDICATION: Multiple joint pain at the bilateral hands and wrists TECHNIQUE: 1. Posteroanterior and lateral views of the left wrist were obtained. 2. Dorsal palmar and lateral views of the left hand were obtained. 3. Posteroanterior and lateral views of the right wrist were obtained. 4. Dorsal palmar and lateral views of the right hand were obtained. COMPARISON: None. FINDINGS: Alignment of the bilateral hands and wrists is normal. No fracture identified. Mild osteoarthritis or dressed by mild nonuniform joint space narrowing and tiny marginal osteophytes at multiple bilateral interphalangeal joints with distal predominance. No erosions to suggest an inflammatory arthritis. N o focal soft tissue swelling. IMPRESSION: 1. Typical distribution of mild polyarticular osteoarthritis at multiple bilateral interphalangeal cholo ints. Reviewed, dictated and finalized at location A. IMPRESSION: 1. Typical distribution of mild polyarticular osteoarthritis at multiple bilate ral interphalangeal joints. IMPRESSION: 1. Typical distribution of mild polyarticular osteoarthritis at multiple bilate ral interphalangeal joints. IMPRESSION: 1. Typical distribution of mild polyarticular osteoarthritis at multiple bilate ral interphalangeal joints.
--- NOTE | ~2021-11-18 | XR_ITS ---
EXAMINATION: XR elbow LT 2V, XR elbow RT 2V DATE: 11/18/2021 14:44 INDICATION: Multiple joint pain TECHNIQUE: 1. Anteroposterior and lateral views of the left elbow were obtained. 2. Anteroposterior and lateral views of the right elbow were obtained. COMPARISON: None. FINDINGS: Alignment is normal at both elbows. No fracture. Joint spaces are normal with no joint effusions. No erosions to suggest an inflammatory arthritis. Soft tissues are unremarkable. IMPRESSION: 1. . Negative bilateral elbow radiographs. Reviewed, dictated and finalized at location A. IMPRESSION: 1. . Negative bilateral elbow radiographs.
[2021-11-18 14:08] LABS: Hematocrit 32.3 % (37.0-47.0); Hemoglobin 10.6 g/dL (12.0-15.0); Mean Corpuscular HGB Conc 32.8 g/dl (32-36); Mean Corpuscular Hemoglobin 30.7 pg (26-34); Mean Corpuscular Volume 93.6 fl (80-100); Mean Platelet Volume 8.8 fl (7.4-10.4); Platelet Count Result 268 k/mm3 (150-375); Red Blood Count 3.45 M/mm3 (4.2-5.4); Red Cell Distribution Width 13.9 % (11.5-14.5); White Blood Count 7.1 K/mm3 (4.5-10.0)
[2021-11-18 14:22] LABS: Creatine Kinase 40 U/L (30-135)
[2021-11-18 14:24] LABS: Alanine Aminotransferase 17 U/L (6-35); Albumin Level 4.2 g/dL (3.5-5.1); Alkaline Phosphatase 111 U/L (38-126); Anion Gap 9 mmol/L (8-16); Aspartate Amino Transferase 21 U/L (14-36); Bilirubin,Total < 0.1 mg/dL (0.2-1.3); Blood Urea Nitrogen 32 mg/dL (7-17); CRP 1.1 mg/dL (<1.0); Calcium 9.2 mg/dL (8.4-10.2); Carbon Dioxide 26 mmol/L (22-30); Chloride 105 mmol/L (98-107); Estimated Glomerular Filt Rate 58; Glucose 138 mg/dL (65-110); Magnesium 2.1 mg/dL (1.6-2.3); Potassium 4.6 mmol/L (3.4-5.0); Sodium 140 mmol/L (137-145); Uric Acid 4.6 mg/dL (2.5-7.5)
[2021-11-18 14:51] LABS: Hemoglobin A1C 6.3 % (<5.7); Thyroid Stimulating Hormone 0.699 uIU/mL (0.465-4.680)
[2021-11-18 14:52] LABS: Free T4 Free Thyroxine 0.57 ng/mL (0.78-2.19); Vitamin D 25 Hydroxy 27.4 ng/mL
[2021-11-18 15:01] LABS: Rheumatoid Factor < 8.6 IU/ML (<12)
[2021-11-18 15:10] LABS: Erythrocyte Sedimentation Rate 124 mm/hr (0-20)
[2021-11-18 15:26] LABS: Folic Acid 8.1 ng/mL (2.76->20)
[2021-11-22 09:47] LABS: Vitamin B1 30 nmol/L (8-30)
[2021-11-22 23:12] LABS: Total Protein/Creatinine Ratio 86 mg/g creat (21-161)
[2021-11-23 12:06] LABS: Vitamin B6 33.4 ng/mL (2.1-21.7)
[2021-11-23 14:10] LABS: Cyclic Citrullinated Peptide <16
[2021-11-23 23:03] LABS: Albumin 3.8 g/dL (3.8-4.8); Alpha 1 Globulin 0.3 g/dL (0.2-0.3); Alpha 2 Globulin 0.8 g/dL (0.5-0.9); Beta 1 Globulin 0.5 g/dL (0.4-0.6); Gamma Globulin 0.9 g/dL (0.8-1.7); Protein, Total 6.7 g/dL (6.1-8.1)
== END 2021-11-18 13:01 | disposition home or self-care (01) ==
PROVIDERS: PCP Internal Medicine; Visit Provider Internal Medicine Rheumatology
DX: D50.9 Iron deficiency anemia, unspecified (principal); M16.0 Bilateral primary osteoarthritis of hip; M19.072 Primary osteoarthritis, left ankle and foot; M19.071 Primary osteoarthritis, right ankle and foot; M17.0 Bilateral primary osteoarthritis of knee; M25.462 Effusion, left knee; M25.461 Effusion, right knee; R53.83 Other fatigue; M19.90 Unspecified osteoarthritis, unspecified site; G62.9 Polyneuropathy, unspecified; M79.10 Myalgia, unspecified site; E55.9 Vitamin D deficiency, unspecified; Z13.1 Encounter for screening for diabetes mellitus; R73.09 Other abnormal glucose; E53.8 Deficiency of other specified B group vitamins; Z51.81 Encounter for therapeutic drug level monitoring; Z79.899 Other long term (current) drug therapy; M79.89 Other specified soft tissue disorders
CPT/HCPCS: 36415; 73030; 73070; 73100; 73120; 73521; 73560; 73600; 73620; 80053; 82306; 82550; 82570; 82607; 82728; 82746; 83036; 83520; 83521; 83735; 84155; 84156; 84165; 84166; 84207; 84425; 84439; 84443; 84550; 85027; 85652; 86038; 86140; 86334; 86335; 86430

== ENCOUNTER 2021-11-19 13:04 | Outpatient (RCR) | payer MEDICARE, SELFPAY ==
[2021-11-19 13:08] VITALS: BMI 51.0
[2021-11-19 13:21] VITALS: BMI 51.0
== END 2022-02-16 09:42 | disposition home or self-care (01) ==
LOC: ANHDMC 13:04
PROVIDERS: PCP Internal Medicine; Visit Provider Physician Assistant
DX: E13.9 Other specified diabetes mellitus without complications (principal); Z71.3 Dietary counseling and surveillance
CPT/HCPCS: 97802

== ENCOUNTER 2021-11-26 10:03 | Outpatient (CLI) | payer MEDICARE, SELFPAY ==
--- NOTE | ~2021-11-26 | MR_ITS ---
EXAMINATION: MR cervical spine wo con DATE: 11/26/2021 11:02 INDICATION: Neck pain TECHNIQUE: Magnetic resonance imaging (MRI) of the cervical spine was performed without intravenous c ontrast. Sequences included sagittal T2-weighted FSE, sagittal T2-weighted FS FSE, sagittal T1-weight ed FSE, axial MERGE and axial T2-weighted FSE. COMPARISON: None FINDINGS: Bone alignment is normal. Vertebral body heights are normal. Bone marrow signal intensity is normal . Intervertebral disc heights are normal. Cord signal intensity is normal. Visualized cervical soft t issues are unremarkable. The following disc levels are specifically discussed: C2-C3: The disc does not extend beyond the endplate margin. There is no uncovertebral joint osteoarth ritis. There is mild right facet joint osteoarthritis. There is no neural foraminal stenosis. There i s no central canal stenosis. C3-C4: Annular fissure but the disc does not extend beyond the endplate margin. There is no uncoverte bral joint osteoarthritis. There is moderate right and moderate left facet joint osteoarthritis. Ther e is no neural foraminal stenosis mild left. There is no central canal stenosis. C4-C5: Disc is mildly bulging There is mild left and moderate right uncovertebral joint osteoarthriti s. There is mild right and moderate left facet joint osteoarthritis. There is mild bilateral neural f oraminal stenosis. There is mild central canal stenosis. C5-C6: The disc does not extend beyond the endplate margin. There is mild left uncovertebral joint os teoarthritis. There is minimal right and moderate left facet joint osteoarthritis. There is no neural foraminal stenosis. There is no central canal stenosis. C6-C7: The disc does not extend beyond the endplate margin. There is mild right and moderate left unc overtebral joint osteoarthritis. There is mild right and mild to moderate left facet joint osteoarthr itis. There is mild left neural foraminal stenosis. There is no central canal stenosis. C7-T1: Disc is bulging with annular fissure and superimposed central disc extrusion with disc materia l extending several millimeters cephalad to the level of the inferior endplate of C7 There is mild bi lateral uncovertebral joint osteoarthritis. There is moderate left and severe right facet joint osteo arthritis. There is mild right neural foraminal stenosis. There is mild central canal stenosis. IMPRESSION: 1. Mild cervical spondylosis Reviewed, dictated and finalized at location B.
--- NOTE | ~2021-11-26 | MR_ITS ---
EXAMINATION: MR lumbar spine wo con DATE: 11/26/2021 11:14 INDICATION: Low back pain TECHNIQUE: Magnetic resonance imaging (MRI) of the lumbar spine was performed without intravenous con trast. Sequences included sagittal T2-weighted FSE, sagittal T2-weighted FS FSE, sagittal T1-weighted FSE, and axial T2-weighted FSE. COMPARISON: None FINDINGS: 6 mm retrolisthesis L5 on S1. Vertebral body heights are normal. There are a few Schmorl's nodes krystian g the inferior endplates of T12, L1 and L5. Normal marrow signal. Moderate disc height loss at T11-T1 2 and L5-S1. Mild disc desiccation with minimal disc height loss at L3-L4 and L4-L5. The conus medull jeff terminates at L1. There is normal signal in the caudal spinal cord. . T2 hyperintense left renal cysts measuring up to 2 cm. Paravertebral soft tissues are otherwise unremarkable. The following dis c levels are specifically discussed: T11-T12: Annular fissure and prominent posterior disc extrusion extending from foraminal zone to fora eagle zone with disc material extending a few millimeters cephalad and caudal to the level of the end plates. There is moderate bilateral facet joint osteoarthritis. There is mild bilateral neural forami nal stenosis. There is mild central canal stenosis. T12-L1: The disc does not extend beyond the endplate margin. There is mild right and moderate left fa cet joint osteoarthritis. There is mild left neural foraminal stenosis. There is no central canal humberto nosis. L1-L2: Disc is mildly bulging. There is mild bilateral facet joint osteoarthritis. There is no neural foraminal stenosis. There is no central canal stenosis. L2-L3: The disc does not extend beyond the endplate margin. There is mild right and moderate left fac et joint osteoarthritis. There is no neural foraminal stenosis. There is no central canal stenosis. L3-L4: Disc is mildly bulging. There is moderate bilateral facet joint osteoarthritis. There is mild left and mild to moderate right neural foraminal stenosis. There is mild central canal stenosis. L4-L5: Disc is mildly bulging. There is severe bilateral facet joint osteoarthritis. There is mild le ft and mild to moderate right neural foraminal stenosis. There is mild central canal stenosis. L5-S1: Annular fissure with disc extrusion extending from foraminal zone to foraminal zone with disc material extending up to 1 mm caudal to the level of the superior endplate of S1. There is moderate b ilateral facet joint osteoarthritis. There is moderate bilateral neural foraminal stenosis. There is no central canal stenosis. IMPRESSION: 1. Moderate lumbar spondylosis. Reviewed, dictated and finalized at location B.
== END 2021-11-26 10:04 ==
PROVIDERS: PCP Internal Medicine; Visit Provider Internal Medicine Rheumatology
DX: M54.2 Cervicalgia (principal); M54.50 Low back pain, unspecified; M47.812 Spondylosis without myelopathy or radiculopathy, cervical region; M47.816 Spondylosis without myelopathy or radiculopathy, lumbar region
CPT/HCPCS: 72141; 72148

== ENCOUNTER 2022-01-04 12:34 | Outpatient (CLI) | payer MEDICARE, SELFPAY ==
--- NOTE | ~2022-01-04 | XR_ITS ---
XR shoulder LT min 2V DATE: 01/04/2022 12:58 INDICATION: Left shoulder pain following a fall TECHNIQUE: 4 views COMPARISON: 11/18/2021 left shoulder FINDINGS: There is diffuse idiopathic skeletal hyperostosis and mild scoliosis of the thoracic spine. No fracture or dislocation, periosteal reaction or bone destruction or abnormal soft tissue calcifica tion of the left shoulder is noted. IMPRESSION: Negative left shoulder Scoliosis and diffuse idiopathic skeletal hyperostosis of the thoracic spine Reviewed, dictated and finalized at location B.
== END 2022-01-04 12:35 | disposition home or self-care (01) ==
PROVIDERS: PCP Internal Medicine; Visit Provider Internal Medicine
DX: M25.512 Pain in left shoulder (principal); M41.84 Other forms of scoliosis, thoracic region; M48.14 Ankylosing hyperostosis [Forestier], thoracic region
CPT/HCPCS: 73030

== ENCOUNTER 2022-02-26 18:45 | Emergency (ER) | payer MEDICARE, SELFPAY ==
[2022-02-26] VITALS (17 sets, daily range): BP systolic 106–145; BP diastolic 63–79; PULSE 60–70; RESP 12–24; TEMP 36.7; O2SAT 94–100
--- NOTE | ~2022-02-26 | XR_ITS ---
EXAMINATION: XR chest 2V 02/26/2022 19:26 INDICATION: Shortness of breath. COPD. PROCEDURE: 2 view chest COMPARISON: Comparison to multiple prior studies sequentially, with oldest reviewed study dated 03/07. FINDINGS: The lungs are clear. The cardiomediastinal silhouette is within normal limits. There are no pleural effusions. There is no pneumothorax suspected. IMPRESSION: 1: NO ACUTE CARDIOPULMONARY DISEASE. Reviewed, dictated and finalized at location A.
--- NOTE | 2022-02-26 18:46 | ECG_ITS ---
Measurements Intervals [place] Rate: 65 P: 34 [place]: 175 QRS: 28 QRSD: 106 T: 94 QT: 408 QTc: 427 Interpretive Statements SINUS RHYTHM ST-T WAVE ABNORMALITY IN HIGH LATERAL LEADS- CONSIDER ISCHEMIA ABNORMAL ECG COMPARED TO ECG 07/06/2018 15:52:02 ST-T WAVE ABNORMALITY IN HIGH LATERAL LEADS- CONSIDER ISCHEMIA NOW PRESENT Electronically Signed On 02-26-2022 21:10:02 CDT by Von Cardenas D.O.
[2022-02-26 19:05] LABS: Basophils Absolute Auto 0.1 K/mm3 (0.0-0.1); Basophils Percent Auto 0.8 % (0.2-1.2); Eosinophils Absolute Auto 0.2 K/mm3 (0-0.3); Eosinophils Percent Auto 2.9 % (0-4.4); Hemoglobin 10.4 g/dL (12.0-15.0); Immature Granulocyte Absolute 0.07 K/mm3 (0.00-0.031); Immature Granulocyte Percent A 0.9 % (0-0.5); Lymphocytes Absolute Auto 2.41 K/mm3 (0.9-3.2); Lymphocytes Percent Auto 31.5 % (18.3-44.2); Mean Corpuscular HGB Conc 31.5 g/dl (32-36); Mean Corpuscular Hemoglobin 30.6 pg (26-34); Mean Corpuscular Volume 97.1 fl (80-100); Mean Platelet Volume 8.7 fl (7.4-10.4); Monocytes Absolute Auto 0.4 K/mm3 (0.1-0.6); Monocytes Percent Auto 5.4 % (2.6-8.5); Neutrophils Absolute Auto 4.5 K/mm3 (1.3-6.7); Neutrophils Percent Auto 58.5 % (45.5-73.1); Platelet Count Result 288 k/mm3 (150-375); Red Cell Distribution Width 14.3 % (11.5-14.5); White Blood Count 7.6 K/mm3 (4.5-10.0)
[2022-02-26 19:16] LABS: Alanine Aminotransferase 23 U/L (6-35); Albumin Level 4.3 g/dL (3.5-5.1); Alkaline Phosphatase 121 U/L (38-126); Anion Gap 8 mmol/L (8-16); Aspartate Amino Transferase 30 U/L (14-36); Bilirubin,Total 0.2 mg/dL (0.2-1.3); Blood Urea Nitrogen 26 mg/dL (7-17); Calcium 9.6 mg/dL (8.4-10.2); Carbon Dioxide 26 mmol/L (22-30); Chloride 103 mmol/L (98-107); Estimated CRCL calculation 74 ml/min; Estimated Glomerular Filt Rate 52; Glucose 129 mg/dL (65-110); Potassium 5.2 mmol/L (3.4-5.0); Sodium 137 mmol/L (137-145)
--- NOTE | 2022-02-26 21:53 | ED.SOB ---
HPI - SOB/Dyspnea General Chief Complaint: Shortness of Breath/Dyspnea Stated Complaint: sob Time Seen by Provider: 02/26/22 21:47 History of Present Illness HPI Narrative: 51-year-old female with history of COPD presents with cough since last night, and shortness of breath/wheezing today. She has no albuterol at home because she states that her insurance will not cover it. No fevers or chills. Related Data Home Medications Medication Instructions Recorded Confirmed diazepam 5 mg tablet 5 mg PO TID PRN Anxiety 04/06/19 11/25/21 duloxetine 60 mg capsule,delayed 60 mg PO DAILY 04/08/19 11/25/21 release quetiapine 300 mg tablet 300 mg PO DAILY 04/04/20 11/25/21 sertraline 100 mg tablet 100 mg PO DAILY 04/04/20 11/25/21 aspirin 325 mg tablet 325 mg PO DAILY 11/24/21 11/25/21 carbamazepine 300 mg 200 mg PO BID 11/24/21 11/25/21 capsule,extended release [id number] rimegepant 75 mg disintegrating 75 mg PO ONCE PRN 11/24/21 11/25/21 tablet ([facility] ODT) Allergies Allergy/AdvReac Type Severity Reaction Status Date / Time egg Allergy Mild Abdominal Verified 02/18/22 15:01 Pain shellfish derived Allergy Mild unknown Verified 02/18/22 15:01 amoxicillin Allergy Unknown unknown Verified 02/18/22 15:01 buspirone [From BuSpar] Allergy Unknown unknown Verified 02/18/22 15:01 cephalexin [From Keflex] Allergy Unknown Unknown Verified 02/18/22 15:01 bee venom protein (honey bee) Allergy Swelling Verified 02/18/22 15:01 [bees] ephedrine Allergy Vomiting Verified 02/18/22 15:01 Review of Systems Review of Systems: CONST: No fever. HEENT: No sore throat C/V: No chest pain RESP: Cough GI: No nausea or vomiting : No dysuria. M/S: No joint pain. SKIN: No rash. NEURO: [No headache or focal numbness or weakness] PSYCH: [No depression] PMFSH Past Medical History Medical History Abnormal CT scan, kidney Allergic rhinitis Anal fissure Noted on colonoscopy from December of [address] Rodriguez Anemia Anxiety Arthritis of knee, right Asthma B12 deficiency Bipolar disorder Cholecystectomy planned Chondromalacia of right patellofemoral joint Chronic anemia COPD (chronic obstructive pulmonary disease) PFTs 2011 demonstrated mild obstructive disease Cystitis Degenerative joint disease of knee Degenerative joint disease of thumb Depression Diabetes mellitus Echocardiogram abnormal Echocardiogram October 2014 demonstrated EF of 60-65% with elevated right atrial pressures of 10-15 mmHg Eczema Essential (primary) hypertension Fatigue Former smoker Quit 1994 age 29; highest amount was 1.5 ppd for up to 19 years, 45 pack years. Gastro-esophageal reflux disease without esophagitis Health care maintenance Hepatosplenomegaly On imaging from November 2017 Herpes simplex type 2 infection Hyperlipidemia Injury of right thigh Internal hemorrhoids On colonoscopy from December 2014 Kidney stones Knee effusion, right Knee joint effusion Knee sprain Left knee DJD Left knee pain Morbid obesity with BMI of 50.0-59.9, adult Multiple personality disorder Per patient report Myalgia Polycystic kidney disease Psychogenic nonepileptic seizure PTSD (post-traumatic stress disorder) Right knee DJD Sleep apnea in adult With recommended CPAP 12 on polysomnogram from 2015 Strain of calf muscle Strain of right calf muscle Tonsillectomy planned Trigger thumb Trochanteric bursitis, right hip UTI (urinary tract infection) Vaginal candidiasis Surgical History Surgical History H/O cardiac catheterization Performed in 2010 without evidence of significant disease H/O dilation and curettage H/O myomectomy H/O: hysterectomy History of colposcopy History of conization of cervix Hx of cholecystectomy 1996 Hx of tonsillectomy 1974 S/P right knee arthroscopy 1992 [place] teeth removed Family History Family History (Reviewed
[2022-02-26] MEDS: predniSONE 20 MG TABLET 40 MG PO (22:07)
[2022-02-26] MEDS: ALBUTEROL SULFATE NEB 2.5 MG/3 ML INH 10 MG INHALATION (22:10)
[2022-02-27 00:11] VITALS: BP 129/64; PULSE 73; RESP 22; O2SAT 96
--- NOTE | 2022-02-27 00:13 | PC.NURSE ---
Patient verbalized I do not want any more medication i just want to go home and eat my dinner.
== END 2022-02-27 00:15 | disposition home or self-care (01) ==
LOC: ANHED 22:05
PROVIDERS: Emergency Medicine; Emergency Provider Emergency Medicine; PCP Internal Medicine
DX: J44.9 Chronic obstructive pulmonary disease, unspecified (principal); D64.9 Anemia, unspecified; E11.9 Type 2 diabetes mellitus without complications; I10 Essential (primary) hypertension; E78.5 Hyperlipidemia, unspecified; E53.8 Deficiency of other specified B group vitamins; Q61.3 Polycystic kidney, unspecified; K21.9 Gastro-esophageal reflux disease without esophagitis; M17.0 Bilateral primary osteoarthritis of knee; M19.049 Primary osteoarthritis, unspecified hand; F41.9 Anxiety disorder, unspecified; F31.9 Bipolar disorder, unspecified; F43.10 Post-traumatic stress disorder, unspecified; Z90.710 Acquired absence of both cervix and uterus; Z87.442 Personal history of urinary calculi; Z87.891 Personal history of nicotine dependence; Z87.440 Personal history of urinary (tract) infections; Z79.82 Long term (current) use of aspirin; Z79.84 Long term (current) use of oral hypoglycemic drugs; R94.31 Abnormal electrocardiogram [ECG] [EKG]
CPT/HCPCS: 36415; 71046; 80053; 85025; 93005; 94640; 99284; J7512

== ENCOUNTER 2022-03-09 09:32 | Outpatient (CLI) | payer MEDICARE, SELFPAY ==
--- NOTE | ~2022-03-09 | MM_ITS ---
EXAMINATION: MM screening osbaldo BI w elana HISTORY: Screening mammogram TECHNIQUE: Craniocaudal and mediolateral oblique 3-D tomosynthesis images were obtained and synthetic 2-D images were generated. CAD analysis was submitted and interpreted. COMPARISON: No prior mammogram is available for comparison at this institution. BREAST PARENCHYMAL COMPOSITION: There are scattered areas of fibroglandular density. FINDINGS: There is no suspicious mass, calcification, or architectural distortion to suggest malignan cy in either breast. IMPRESSION: 1. No mammographic evidence of malignancy. 2. Recommend routine screening mammography in one year. BI-RADS Category 1: Negative Reviewed, dictated and finalized at location A.
== END 2022-03-09 09:33 | disposition home or self-care (01) ==
PROVIDERS: PCP Internal Medicine; Visit Provider Physician Assistant
DX: Z12.31 Encounter for screening mammogram for malignant neoplasm of breast (principal)
CPT/HCPCS: 77063; 77067

== ENCOUNTER 2022-05-04 14:05 | Emergency (ER) | payer MEDICARE, SELFPAY ==
--- NOTE | ~2022-05-04 | XR_ITS ---
XR chest 2V DATE: 05/04/2022 15:29 INDICATION: Cough, shortness of breath TECHNIQUE: PA and lateral views COMPARISON: 02/26/2022 PA and lateral chest FINDINGS: Normal heart size. No hilar or mediastinal enlargement. No pulmonary infiltrate or consolid ation, pleural effusion or pulmonary vascular congestion or pneumothorax. Degenerative spurring of the thoracic spine. Status post cholecystectomy. IMPRESSION: No active cardiopulmonary disease Reviewed, dictated and finalized at location B. CULTURE INTERNSHIP
[2022-05-04 14:15] VITALS: BP 168/98; PULSE 79; RESP 20; TEMP 36.5; O2SAT 100
[2022-05-04 15:06] LABS: Influenza A QL RT-PCR Positive (Negative); Influenza B QL RT-PCR Negative (Negative); SARS-CoV-2 RNA PCR Negative
--- NOTE | 2022-05-04 16:01 | ED.GENADULT ---
HPI - General Adult General Chief complaint: Shortness of Breath/Dyspnea Stated complaint: SOB Time Seen by Provider: 05/04/22 15:06 History of Present Illness HPI narrative: This is a 51-year-old female presenting to the ED with flu-like symptoms for 3 days. Patient notes that 3 days ago she started of headache, muscle aches and diarrhea. She has taken Mucinex and Tylenol extreme for symptom control. She spoke with her primary care physician and he recommended heat she come in to be tested for flu. Patient has not been vaccinated against flu. Patient denies chest pain, shortness of breath, abdominal pain, nausea or vomiting. Related Data Home Medications Medication Instructions Recorded Confirmed diazepam 5 mg tablet 5 mg PO TID PRN Anxiety 04/06/19 03/10/22 duloxetine 60 mg capsule,delayed 60 mg PO DAILY 04/08/19 03/10/22 release quetiapine 300 mg tablet 300 mg PO DAILY 04/04/20 03/10/22 sertraline 100 mg tablet 100 mg PO DAILY 04/04/20 03/10/22 carbamazepine 300 mg 200 mg PO BID 11/24/21 03/10/22 capsule,extended release [id number] rimegepant 75 mg disintegrating 75 mg PO ONCE PRN 11/24/21 03/10/22 tablet (Nurtec ODT) Allergies Allergy/AdvReac Type Severity Reaction Status Date / Time egg Allergy Mild Abdominal Verified 03/10/22 10:46 Pain shellfish derived Allergy Mild unknown Verified 03/10/22 10:46 amoxicillin Allergy Unknown unknown Verified 03/10/22 10:46 buspirone [From BuSpar] Allergy Unknown unknown Verified 03/10/22 10:46 cephalexin [From Keflex] Allergy Unknown Unknown Verified 03/10/22 10:46 bee venom protein (honey bee) Allergy Swelling Verified 03/10/22 10:46 [bees] ephedrine Allergy Vomiting Verified 03/10/22 10:46 Review of Systems Review of Systems: CONSTITUTIONAL: Denies night sweats. EYES: No eye pain ENT: Denies rhinorrhea CARDIOVASCULAR: Denies palpitations RESPIRATORY: Denies hemoptysis GASTROINTESTINAL: Denies hematemesis GENITOURINARY: Denies hematuria. SKIN: Denies rash MUSCULOSKELETAL: Denies myalgia. NEUROLOGIC: Denies weakness. PSYCHIATRIC: Denies delusions PMFSH Past Medical History Medical History Abnormal CT scan, kidney Allergic rhinitis Anal fissure Noted on colonoscopy from December of [address] Rodriguez Anemia Anxiety Arthritis of knee, right Asthma B12 deficiency Bipolar disorder Cholecystectomy planned Chondromalacia of right patellofemoral joint Chronic anemia COPD (chronic obstructive pulmonary disease) PFTs 2011 demonstrated mild obstructive disease Cystitis Degenerative joint disease of knee Degenerative joint disease of thumb Depression Diabetes mellitus Echocardiogram abnormal Echocardiogram October 2014 demonstrated EF of 60-65% with elevated right atrial pressures of 10-15 mmHg Eczema Essential (primary) hypertension Fatigue Former smoker Quit 1994 age 29; highest amount was 1.5 ppd for up to 19 years, 45 pack years. Gastro-esophageal reflux disease without esophagitis Health care maintenance Hepatosplenomegaly On imaging from November 2017 Herpes simplex type 2 infection Hyperlipidemia Injury of right thigh Internal hemorrhoids On colonoscopy from December 2014 Kidney stones Knee effusion, right Knee joint effusion Knee sprain Left knee DJD Left knee pain Morbid obesity with BMI of 50.0-59.9, adult Multiple personality disorder Per patient report Myalgia Polycystic kidney disease Psychogenic nonepileptic seizure PTSD (post-traumatic stress disorder) Right knee DJD Sleep apnea in adult With recommended CPAP 12 on polysomnogram from 2015 Strain of calf muscle Strain of right calf muscle Tonsillectomy planned Trigger thumb Trochanteric bursitis, right hip UTI (urinary tract infection) Vaginal candidiasis Surgical History Surgical History H/O cardiac catheterization Performed in 2010 without evidence of sig
[2022-05-04 16:15] VITALS: PULSE 71; RESP 18
== END 2022-05-04 16:15 | disposition home or self-care (01) ==
PROVIDERS: Emergency Medicine; Emergency Provider Emergency Medicine; PCP Internal Medicine
DX: J10.1 Influenza due to other identified influenza virus with other respiratory manifestations (principal); Z20.822 Contact with and (suspected) exposure to COVID-19; F41.9 Anxiety disorder, unspecified; J44.9 Chronic obstructive pulmonary disease, unspecified; F32.9 Major depressive disorder, single episode, unspecified; E78.5 Hyperlipidemia, unspecified; G47.30 Sleep apnea, unspecified; I10 Essential (primary) hypertension
CPT/HCPCS: 71046; 87636; 99283

== ENCOUNTER 2022-06-19 17:11 | Emergency (ER) | payer MEDICARE, SELFPAY ==
--- NOTE | ~2022-06-19 | CT_ITS ---
EXAMINATION: CTA chest PE protocol DATE: 06/19/2022 18:54 INDICATION: Left-sided chest pain. Elevated d-dimer. TECHNIQUE: Computed tomography (CT) pulmonary angiogram of the chest was performed with 100 mL Omnipa que-350 intravenous contrast. Additional 3D reconstructions utilizing coronal maximum intensity proje ction (MIP) were performed. Automated exposure control and iterative reconstruction technique were em ployed. The dose-length product was 1098.60 mGy-cm. COMPARISON: None FINDINGS: Excellent contrast opacification of the pulmonary arteries. There is mild streak artifact from dense contrast in the superior vena cava and right atrium. No significant respiratory motion artifact yield ing diagnostic quality study which demonstrates no pulmonary embolism. Mild discoid atelectasis at th e lingula. Calcified left lower lobe nodule consistent with old granulomatous disease. Additional mil d atelectasis along the medial right middle lobe. No pneumonia, pulmonary edema, pleural effusion or pneumothorax. Arch size is normal. No pericardial effusion. Thoracic aorta is normal in caliber with no dissection. Multinodular goiter the largest measuring 2.2 cm with several >1 cm nodules with coars e calcification. No pathologically enlarged thoracic lymphadenopathy. A few cysts at the upper pole t he left kidney, the largest measuring up to 2.8 cm. Mild thoracic dextrocurvature with severe spondyl osis. IMPRESSION: 1. No pulmonary embolism or other acute cardiopulmonary disease. Reviewed, dictated and finalized at location A. UCT DEVELOPMENT ENGINEER
--- NOTE | ~2022-06-19 | XR_ITS ---
EXAMINATION: XR chest 2V DATE: 06/19/2022 17:45 INDICATION: Chest pain TECHNIQUE: frontal and lateral views of the chest were obtained. COMPARISON: Chest radiograph dated 05/04/[address] abdomen and pelvis dated 11/19/2020 FINDINGS: Unchanged mild lingular atelectasis along side a small left pericardial fat pad. No new airspace opac ities, pulmonary edema, pleural effusion or pneumothorax. The cardiomediastinal silhouette is within normal limits for AP technique. Mild thoracic kyphosis with mild lower thoracic levocurvature. Modera te spondylosis. IMPRESSION: 1. Chronic mild lingular atelectasis/scarring. No acute cardiopulmonary disease. Reviewed, dictated and finalized at location A. ING WHEEL OPERATOR IMPRESSION: 1. Chronic mild lingular atelectasis/scarring. No acute cardiopulmonary disease .
--- NOTE | 2022-06-19 17:13 | ECG_ITS ---
Measurements Intervals [place] Rate: 74 P: 55 MA: 176 QRS: 49 QRSD: 111 T: 90 QT: 378 QTc: 420 Interpretive Statements SINUS RHYTHM INTRAVENTRICULAR CONDUCTION DELAY BORDERLINE T WAVE ABNORMALITY- HIGH LATERAL LEADS BASELINE ARTIFACT- I, II, III, AVR, AVL, AVF BORDERLINE ECG COMPARED TO ECG 02/26/2022 18:52:04 ST-T WAVE ABNORMALITY IMPROVED Electronically Signed On 06-20-2022 8:23:43 MANAGEMENT NURSE RN by Von Cardenas D.O.
[2022-06-19 17:16] VITALS: PULSE 74
[2022-06-19 17:17] VITALS: BP 153/95; PULSE 73; RESP 18; TEMP 36.6; O2SAT 100
[2022-06-19 17:27] LABS: Basophils Absolute Auto 0.1 K/mm3 (0.0-0.1); Basophils Percent Auto 0.9 % (0.2-1.2); Eosinophils Absolute Auto 0.2 K/mm3 (0-0.3); Eosinophils Percent Auto 1.9 % (0-4.4); Hematocrit 33.5 % (37.0-47.0); Hemoglobin 10.5 g/dL (12.0-15.0); Immature Granulocyte Absolute 0.04 K/mm3 (0.00-0.031); Immature Granulocyte Percent A 0.5 % (0-0.5); Lymphocytes Absolute Auto 3.09 K/mm3 (0.9-3.2); Lymphocytes Percent Auto 38.2 % (18.3-44.2); Mean Corpuscular HGB Conc 31.3 g/dl (32-36); Mean Corpuscular Hemoglobin 30.9 pg (26-34); Mean Corpuscular Volume 98.5 fl (80-100); Mean Platelet Volume 8.5 fl (7.4-10.4); Monocytes Absolute Auto 0.5 K/mm3 (0.1-0.6); Monocytes Percent Auto 5.9 % (2.6-8.5); Neutrophils Absolute Auto 4.3 K/mm3 (1.3-6.7); Neutrophils Percent Auto 52.6 % (45.5-73.1); Platelet Count Result 282 k/mm3 (150-375); Red Cell Distribution Width 13.5 % (11.5-14.5); White Blood Count 8.1 K/mm3 (4.5-10.0)
[2022-06-19 17:37] LABS: Alanine Aminotransferase 22 U/L (6-35); Albumin Level 4.5 g/dL (3.5-5.1); Alkaline Phosphatase 96 U/L (38-126); Anion Gap 6 mmol/L (8-16); Aspartate Amino Transferase 24 U/L (14-36); Bilirubin,Total 0.2 mg/dL (0.2-1.3); Blood Urea Nitrogen 30 mg/dL (7-17); Calcium 9.4 mg/dL (8.4-10.2); Carbon Dioxide 30 mmol/L (22-30); Chloride 100 mmol/L (98-107); Estimated CRCL calculation 74 ml/min; Estimated Glomerular Filt Rate 52; Glucose 103 mg/dL (65-110); Lipase 168 U/L (23-300); Potassium 4.4 mmol/L (3.4-5.0); Sodium 136 mmol/L (137-145)
[2022-06-19 17:38] LABS: Prothrombin Time 12.9 Seconds (11.1-14.7)
[2022-06-19 17:39] LABS: Partial Thromboplastin Time 38.3 SECONDS (22.3-36.8)
--- NOTE | 2022-06-19 17:42 | ED.GENADULT ---
HPI - General Adult General Chief complaint: Chest Pain Stated complaint: Chest Pain Time Seen by Provider: 06/19/22 17:17 History of Present Illness HPI narrative: 52-year-old female presented to the emergency department for evaluation of chest pain that started approximately 45 minutes just prior to arrival. Patient describes the chest pain as a pressure that does radiate to her left arm. Patient denies any shortness of breath with this. Patient denies of the radiation of the pain to her neck or back. Patient reports he does have a prior history of RI and this feels similar. Patient states by she had similar pain and was sent to [place]. Patient reports she had an Angiocath time but denies having any cardiac stents. Patient has not had a stress test since that time. Patient denies any prior history of PE or DVT. Patient denies any leg pain or swelling. Related Data Home Medications Medication Instructions Recorded Confirmed diazepam 5 mg tablet 5 mg PO TID PRN Anxiety 04/06/19 06/01/22 duloxetine 60 mg capsule,delayed 60 mg PO DAILY 04/08/19 06/01/22 release quetiapine 300 mg tablet 300 mg PO DAILY 04/04/20 06/01/22 sertraline 100 mg tablet 100 mg PO DAILY 04/04/20 06/01/22 carbamazepine 300 mg 200 mg PO BID 11/24/21 06/01/22 capsule,extended release [id number] rimegepant 75 mg disintegrating 75 mg PO ONCE PRN 11/24/21 06/01/22 tablet (Nurtec ODT) Allergies Allergy/AdvReac Type Severity Reaction Status Date / Time shellfish derived Allergy Mild unknown Verified 06/19/22 17:14 amoxicillin Allergy Unknown unknown Verified 06/19/22 17:14 buspirone [From BuSpar] Allergy Unknown unknown Verified 06/19/22 17:14 cephalexin [From Keflex] Allergy Unknown Unknown Verified 06/19/22 17:14 bee venom protein (honey bee) Allergy Swelling Verified 06/19/22 17:14 [bees] egg AdvReac Mild Abdominal Verified 06/19/22 17:17 Pain ephedrine AdvReac Vomiting Verified 06/19/22 17:17 Review of Systems Review of Systems: CONSTITUTIONAL: Denies fever, chills, or sweats. EYES: Denies visual changes, redness, or discharge. ENT: Denies rhinorrhea, congestion, sore throat, or otalgia. CARDIOVASCULAR: See HPI RESPIRATORY: Denies cough or dyspnea. GASTROINTESTINAL: Denies abdominal pain, nausea, vomiting, or diarrhea. GENITOURINARY: Denies dysuria or hematuria. SKIN: Denies rash or itching. MUSCULOSKELETAL: Denies back pain, joint pain, or myalgia. NEUROLOGIC: Denies headache, numbness, or weakness. [facility] Past Medical History Medical History Abnormal CT scan, kidney Allergic rhinitis Anal fissure Noted on colonoscopy from December of [address] Rodriguez Anemia Anxiety Arthritis of knee, right Asthma B12 deficiency Bipolar disorder Cholecystectomy planned Chondromalacia of right patellofemoral joint Chronic anemia COPD (chronic obstructive pulmonary disease) PFTs 2011 demonstrated mild obstructive disease Cystitis Degenerative joint disease of knee Degenerative joint disease of thumb Depression Diabetes mellitus Echocardiogram abnormal Echocardiogram October 2014 demonstrated EF of 60-65% with elevated right atrial pressures of 10-15 mmHg Eczema Essential (primary) hypertension Fatigue Former smoker Quit 1995 age 29; highest amount was 1.5 ppd for up to 19 years, 45 pack years. Gastro-esophageal reflux disease without esophagitis Health care maintenance Hepatosplenomegaly On imaging from November 2017 Herpes simplex type 2 infection Hyperlipidemia Injury of right thigh Internal hemorrhoids On colonoscopy from December 2014 Kidney stones Knee effusion, right Knee joint effusion Knee sprain Left knee DJD Left knee pain Morbid obesity with BMI of 50.0-59.9, adult Multiple personality disorder Per patient report Myalgia Polycystic kidney disease Psychogenic nonepileptic seizure PTSD (post-traumatic stress disorder) Right knee DJD Sleep apnea in adult With r
[2022-06-19] MEDS: NITROGLYCERIN SL 0.4 MG TABLET SUBLINGUAL (17:47)
[2022-06-19 17:48] LABS: Troponin I < 0.012 ng/mL (0.000-0.034)
[2022-06-19 18:10] VITALS: BP 134/83; PULSE 68; RESP 18; O2SAT 98
[2022-06-19 18:25] LABS: D Dimer 0.86 ug/mL (<0.48)
[2022-06-19 19:18] VITALS: BP 121/82; PULSE 66; RESP 15; O2SAT 100
[2022-06-19 20:34] VITALS: BP 119/73; PULSE 63; RESP 18; O2SAT 98
[2022-06-19 20:34] LABS: Troponin I < 0.012 ng/mL (0.000-0.034)
== END 2022-06-19 21:06 | disposition home or self-care (01) ==
PROVIDERS: Emergency Medicine; Emergency Provider Emergency Medicine; PCP Internal Medicine
DX: R07.89 Other chest pain (principal); I25.2 Old myocardial infarction; I10 Essential (primary) hypertension; D64.9 Anemia, unspecified; E53.8 Deficiency of other specified B group vitamins; J44.9 Chronic obstructive pulmonary disease, unspecified; E11.9 Type 2 diabetes mellitus without complications; E78.5 Hyperlipidemia, unspecified; K21.9 Gastro-esophageal reflux disease without esophagitis; M17.0 Bilateral primary osteoarthritis of knee; M19.049 Primary osteoarthritis, unspecified hand; E66.01 Morbid (severe) obesity due to excess calories; Z68.43 Body mass index [BMI] 50.0-59.9, adult; Q61.3 Polycystic kidney, unspecified; G47.30 Sleep apnea, unspecified; F41.9 Anxiety disorder, unspecified; F32.A Depression, unspecified; F43.10 Post-traumatic stress disorder, unspecified; Z87.442 Personal history of urinary calculi; Z87.891 Personal history of nicotine dependence; Z87.440 Personal history of urinary (tract) infections; Z90.710 Acquired absence of both cervix and uterus; Z79.84 Long term (current) use of oral hypoglycemic drugs; I45.9 Conduction disorder, unspecified; R94.31 Abnormal electrocardiogram [ECG] [EKG]
CPT/HCPCS: 36415; 71046; 71275; 80053; 83690; 84484; 85025; 85380; 85610; 85730; 93005; 99284; A9270; Q9967

== ENCOUNTER 2022-08-18 00:18 | Day surgery (SDC) | payer MEDICARE, SELFPAY ==
[2022-07-12 14:22] VITALS: BMI 51.5
--- NOTE | 2022-08-09 13:37 | PC.NURSE ---
Confirmed with patient new date and time of procedure. Verified changes in medications. Patient stated no change in medical history.
--- NOTE | 2022-08-17 16:34 | PM.HPGS ---
History of Present Illness History of Present Illness Consent: Risks, benefits, and alternatives have been discussed and questions answered. Patient agrees to proceed with procedure. Chief complaint: dysphasia,neoplasm screening Narrative: Estee Plasencia is a 52 year old female was referred for a mcpherson of dysphagia. Occasionally bread seem to hang up when she swallows. More important Sheri however she has had epigastric burning for the past 8 months. This occurs at least once a day and will last about 10 or 15 minutes. It is burning and sharp in character. Pepto-Bismol may alleviated. She is on omeprazole 20 mg a day for GERD, Although she does not take it every day.. I see that she had an unremarkable EGD about 7 years ago. She is also referred today for colon cancer screening. She denies seeing blood in her stools. Her stools tend to be thin and runny at times. Review of Systems Review of Systems: All systems reviewed & are unremarkable except as noted in HPI and below PMFSH Past Medical History Medical History Abnormal CT scan, kidney Allergic rhinitis Anal fissure Noted on colonoscopy from December of [address] Rodriguez Anemia Anxiety Arthritis of knee, right Asthma B12 deficiency Bipolar disorder Cholecystectomy planned Chondromalacia of right patellofemoral joint Chronic anemia COPD (chronic obstructive pulmonary disease) PFTs 2011 demonstrated mild obstructive disease Cystitis Degenerative joint disease of knee Degenerative joint disease of thumb Depression Diabetes mellitus Echocardiogram abnormal Echocardiogram October 2014 demonstrated EF of 60-65% with elevated right atrial pressures of 10-15 mmHg Eczema Essential (primary) hypertension Fatigue Former smoker Quit 1995 age 29; highest amount was 1.5 ppd for up to 19 years, 45 pack years. Gastro-esophageal reflux disease without esophagitis Health care maintenance Hepatosplenomegaly On imaging from November 2017 Herpes simplex type 2 infection Hyperlipidemia Injury of right thigh Internal hemorrhoids On colonoscopy from December 2014 Kidney stones Knee effusion, right Knee joint effusion Knee sprain Left knee DJD Left knee pain Morbid obesity with BMI of 50.0-59.9, adult Multiple personality disorder Per patient report Myalgia Polycystic kidney disease Psychogenic nonepileptic seizure PTSD (post-traumatic stress disorder) Right knee DJD Sleep apnea in adult With recommended CPAP 12 on polysomnogram from 2015 Strain of calf muscle Strain of right calf muscle Tonsillectomy planned Trigger thumb Trochanteric bursitis, right hip UTI (urinary tract infection) Vaginal candidiasis Surgical History Surgical History H/O cardiac catheterization Performed in 2010 without evidence of significant disease H/O dilation and curettage H/O myomectomy H/O: hysterectomy History of colposcopy History of conization of cervix Hx of cholecystectomy 1996 Hx of tonsillectomy 1973 S/P right knee arthroscopy 1992 [place] teeth removed Family History Family History Sibling Patient's brother is in good health Family history of gastrointestinal disorder Father Family history of malignant melanoma Patient's father is Mother Family history of malignant neoplasm of ovary Patient's mother is Sibling Cushings syndrome Other Family history of alcoholism Family history of arthritis Family history of heart disease in male family member before age 55 Family history of mental disorder Hypertension Social History Social History Social History: The patient lives at home with her of 21 years. She is on disability. She is a former smoker and used to smoke 2 and half packs of cigare
[2022-08-18 09:57] VITALS: BP 148/89; PULSE 57; RESP 20; TEMP 35.8; O2SAT 100; BMI 52.0
[2022-08-18] MEDS: LACTATED RINGERS 1,000 ML 150 ML IV CONT (10:00)
[2022-08-18 10:19] LABS: Glucose Point of Care 82 mg/dl (65-105)
--- NOTE | 2022-08-18 10:20 | WPDANESEPPF ---
Anes - Initial Pre Proc Eval Procedure: Operation Date: 08/18/22 10:45 Proposed Procedures p Esophagogastroduodenoscopy and Screening Colonoscopy - Simone Finn MD Date/Time: 08/18/22 10:20 Surgeon: Simone Finn MD Pre Op Diagnosis: dysphasia,neoplasm screening Patient Data Age: 52 Gender: F Height: 1.65 m Weight: 141.8 kg Last Vital Signs Temp 96.5 F L 08/18/22 09:57 Pulse 57 L 08/18/22 09:57 Resp 20 08/18/22 09:57 BP 148/89 H 08/18/22 09:57 Pulse Ox 100 08/18/22 09:57 O2 Del Method Room Air 08/18/22 09:57 Allergies Allergy/AdvReac Type Severity Reaction Status Date / Time shellfish derived Allergy Mild Swelling Verified 08/18/22 09:53 of Lip/Tongue/Throat amoxicillin Allergy Unknown unknown Verified 08/18/22 09:53 buspirone [From BuSpar] Allergy Unknown unknown Verified 08/18/22 09:53 cephalexin [From Keflex] Allergy Unknown Unknown Verified 08/18/22 09:53 bee venom protein (honey bee) Allergy Swelling Verified 08/18/22 09:53 [bees] Sulfa (Sulfonamide Allergy Swelling Verified 08/18/22 09:53 Antibiotics) of Lip/Tongue/Throat egg AdvReac Mild Abdominal Verified 08/18/22 09:53 Pain ephedrine AdvReac Vomiting Verified 08/18/22 09:53 Home Medications Medication Instructions Recorded Confirmed Type diazepam 5 mg tablet 5 mg PO TID PRN Anxiety 04/06/19 07/12/22 History duloxetine 60 mg capsule,delayed 60 mg PO DAILY 04/08/19 08/18/22 History release quetiapine 300 mg tablet 400 mg PO DAILY 04/04/20 08/18/22 History sertraline 100 mg tablet 100 mg PO DAILY 04/04/20 08/18/22 History rimegepant 75 mg disintegrating 75 mg PO DAILY PRN Migraine 11/24/21 08/18/22 History tablet (Nurtec ODT) Headache blood glucose control, low (True #1 ea 12/22/21 08/09/22 Rx Metrix Level 1 solution) blood glucose control, low (True #1 ea 12/24/21 08/09/22 Rx Metrix Level 1 solution) alcohol swabs (BD Alcohol Swabs) 1 pad topical DAILY #100 ea 02/05/22 07/12/22 Rx lancets 33 gauge (TRUEplus Lancets) #100 ea 02/05/22 08/09/22 Rx potassium chloride 20 mEq 20 meq PO DAILY #90 tabs 02/15/22 08/18/22 Rx tablet,extended release albuterol sulfate 90 mcg/actuation 2 inh inhalation QID PRN shortness 02/26/22 08/18/22 Rx aerosol inhaler of breath or wheezing #8.5 grams ipratropium 0.5 mg-albuterol 3 mg 3 ml inhalation Q8H PRN shortness 02/26/22 08/18/22 Rx (2.5 mg base)/3 mL nebulization of breath or wheezing #180 mL soln blood sugar diagnostic (True #100 ea 03/18/22 08/09/22 Rx Metrix Glucose Test Strip) metformin 500 mg tablet 500 mg PO BID #180 tabs 03/25/22 08/18/22 Rx fluticasone propionate 50 2 spray intranasal DAILY PRN nasal 05/01/22 08/18/22 Rx mcg/actuation nasal congestion #48 mL spray,suspension naproxen 500 mg tablet 500 mg PO BID #180 tabs 05/15/22 08/18/22 Rx omeprazole 20 mg capsule,delayed 20 mg PO HS #90 caps 06/14/22 08/18/22 Rx release acyclovir 400 mg tablet 400 mg PO BID #180 tabs 06/24/22 08/18/22 Rx carbamazepine 200 mg tablet 400 mg PO TID 06/25/22 07/12/22 History pravastatin 40 mg tablet 40 mg PO DAILY #90 tabs 06/30/22 08/18/22 Rx diphenhydramine HCl 50 mg capsule 50 mg PO HS PRN Allergy Symptoms 07/12/22 08/18/22 History hydroxychloroquine 200 mg tablet 200 mg PO BID 07/12/22 08/18/22 History cyclobenzaprine 10 mg tablet 10 mg PO .hs PRN muscle spasm #30 07/27/22 08/09/22 Rx tabs gabapentin 300 mg capsule See Rx Instructions .Route 07/30/22 08/18/22 Rx .COMPLEX #270 caps losartan 25 mg tablet 25 mg PO DAILY 08/09/22 08/18/22 History Laboratory Tests 08/18/22 10:15 POC Capillary Glucose 82 mg/dl mg/dl (65-105) Patient hx anesthesia problems: none Family hx anesthesia problems: none Results Review: All pre-operative results and documents have been reviewed as part of the pre-operative evaluation. [facility] Past Medical History Medical History (Reviewed 08/18/22 @ 09:50 by Simone Finn
--- NOTE | 2022-08-18 11:07 | SUR.OPER ---
EGD ended at 1059. Colonoscopy started at 1108.
[2022-08-18] MEDS: SIMETHICONE ORAL SUSPENSION 20 MG/0.3 ML 30 ML BOTTLE 0.6 ML IRRIGATION (11:15)
[2022-08-18 11:29] VITALS: BP 96/36; PULSE 61; RESP 16; O2SAT 100
[2022-08-18 11:39] VITALS: BP 115/35; PULSE 63; RESP 21; O2SAT 100
[2022-08-18 11:49] VITALS: BP 120/64; PULSE 61; RESP 15; O2SAT 100
== END 2022-08-18 13:20 | disposition home or self-care (01) ==
PROVIDERS: PCP Internal Medicine; Visit Provider Internal Medicine Gastroenterology
PROC: 0DJ08ZZ Inspection of Upper Intestinal Tract, Via Natural or Artificial Opening Endoscopic (ICD-10-PCS; CPT 43235; principal; 2022-08-18 10:45)
DX: Z12.11 Encounter for screening for malignant neoplasm of colon (principal); R13.10 Dysphagia, unspecified; K57.30 Diverticulosis of large intestine without perforation or abscess without bleeding; K21.9 Gastro-esophageal reflux disease without esophagitis; E11.9 Type 2 diabetes mellitus without complications; I10 Essential (primary) hypertension; E78.5 Hyperlipidemia, unspecified; Z87.891 Personal history of nicotine dependence; E66.01 Morbid (severe) obesity due to excess calories; Z68.43 Body mass index [BMI] 50.0-59.9, adult
CPT/HCPCS: 43239; G0121; 82948; 87081; 88305; J2704; J7120

== ENCOUNTER 2022-08-30 16:51 | Emergency (ER) | payer MEDICARE, SELFPAY ==
--- NOTE | ~2022-08-30 | XR_ITS ---
EXAMINATION: XR lumbar spine min 4V DATE: 08/30/2022 21:17 INDICATION: Low back pain TECHNIQUE: Anteroposterior, lateral, and bilateral oblique views of the lumbar spine, and cone-down l ateral view of the lumbosacral junction were obtained. COMPARISON: 01/28/2004 FINDINGS: There are 4 mm of anterolisthesis of L4 on L5 and 4 mm of retrolisthesis of L5 on S1. There is moderate to severe loss of intervertebral disc space height at L5-S1. There is mild loss of inter vertebral disc space height at L3-4. The vertebral body heights are maintained. There is severe facet joint osteoarthritis at L4-5 and L5-S1. There is no fracture. IMPRESSION: 1. Severe lower lumbar spondylosis without acute findings. Reviewed, dictated and finalized at location F.
--- NOTE | ~2022-08-30 | XR_ITS ---
EXAMINATION: XR knee LT min 4V DATE: 08/30/2022 21:16 INDICATION: Left knee pain TECHNIQUE: Four views of the left knee were obtained. COMPARISON: 11/18/2021 FINDINGS: Alignment is normal. No fracture or osteochondral lesion. There is a moderate-sized joint e ffusion. There is tricompartmental osteoarthritis, moderate in the patellofemoral and medial compartm ents. Soft tissues are unremarkable. IMPRESSION: 1. Osteoarthritis and moderate size joint effusion without acute osseous abnormality. Reviewed, dictated and finalized at location F. IMPRESSION: 1. Osteoarthritis and moderate size joint effusion without acute osseous abnorm ality.
--- NOTE | ~2022-08-30 | CT_ITS ---
EXAMINATION: CT cervical spine wo con DATE: 08/30/2022 20:39 INDICATION: Neck pain TECHNIQUE: Computed tomography (CT) of the cervical spine was performed without intravenous contrast. The dose-length product (DLP) was 592.13 mGy-cm. Automated exposure control and iterative reconstruc tion technique were employed. COMPARISON: 11/20/2013 FINDINGS: Bone alignment is normal. There is no fracture. The vertebral body heights and intervertebr al disc spaces are normal. The odontoid process is intact. The prevertebral soft tissues are normal. There is multilevel mild to moderate facet joint osteoarthritis. There is mild multilevel uncovertebr al joint osteoarthritis. Calcified bilateral thyroid nodules are again noted. Prior ultrasound has be en performed and biopsy was recommended. Recommend correlation with pathology results. IMPRESSION: 1. Mild cervical spondylosis without acute findings or significant interval change. Reviewed, dictated and finalized at location F. IMPRESSION: 1. Mild cervical spondylosis without acute findings or significant interval pete nge.
--- NOTE | ~2022-08-30 | XR_ITS ---
EXAMINATION: XR hip RT 2V w AP pelvis INDICATION: Pain after fall TECHNIQUE: AP view the pelvis and two views of the right hip are obtained. COMPARISON: 11/18/2021 FINDINGS: Bone alignment is normal. There is no fracture. There is moderate right and mild left hip o steoarthritis. Bilateral sacroiliitis is again noted. There are phleboliths of the pelvis. IMPRESSION: 1. No acute osseous abnormality. Reviewed, dictated and finalized at location F.
--- NOTE | ~2022-08-30 | CT_ITS ---
EXAMINATION: CT brain wo con INDICATION: Head injury COMPARISON: 01/12/2016 TECHNIQUE: Standard unenhanced head CT. The dose-length product (DLP) was 605.33 mGy-cm. The mA was a djusted according to patient size. Iterative reconstruction technique was employed. FINDINGS: There is no intracranial hemorrhage, acute infarction, or abnormal mass lesion. The ventric les are normal. There is no abnormal mass effect or midline shift. The jacobson-white matter differentiat ion is normal. The basal cisterns are patent. The orbits are normal. The paranasal sinuses, mastoids and calvarium are normal. IMPRESSION: 1. No acute intracranial abnormality. Reviewed, dictated and finalized at location F.
--- NOTE | ~2022-08-30 | XR_ITS ---
EXAMINATION: XR ankle RT min 3V INDICATION: Right ankle pain TECHNIQUE: Four views of the right ankle are obtained. COMPARISON: 11/16/2021 FINDINGS: There is mild osteoarthritis of the ankle. Bone alignment is normal. There is no fracture. IMPRESSION: 1. Mild osteoarthritis without acute osseous abnormality Reviewed, dictated and finalized at location F.
--- NOTE | ~2022-08-30 | XR_ITS ---
EXAMINATION: XR knee RT min 4V DATE: 08/30/2022 21:16 INDICATION: Right knee pain TECHNIQUE: Four views of the right knee were obtained. COMPARISON: 11/18/2021 FINDINGS: Alignment is normal. No fracture or osteochondral lesion. There is tricompartmental osteoar thritis, severe in the lateral patellofemoral compartments. There is a moderate size knee joint effus ion. Soft tissues are unremarkable. There is an old healed fracture of the proximal fibula. IMPRESSION: 1. Tricompartmental osteoarthritis and moderate size joint effusion without acute osseous abnormality . Reviewed, dictated and finalized at location F. IMPRESSION: 1. Tricompartmental osteoarthritis and moderate size joint effusion without acu te osseous abnormality.
--- NOTE | ~2022-08-30 | XR_ITS ---
EXAMINATION: XR ankle LT min 3V DATE: 08/30/2022 21:16 INDICATION: Left ankle pain TECHNIQUE: Anteroposterior, lateral, mortise, and additional oblique view of the ankle were obtained. COMPARISON: 11/18/2021 FINDINGS: Bone alignment is normal. There is no fracture. There is mild osteoarthritis of the ankle. A plantar calcaneal enthesophyte is noted. IMPRESSION: 1. Mild osteoarthritis without acute osseous abnormality. Reviewed, dictated and finalized at location F.
[2022-08-30 17:17] VITALS: BP 114/68; PULSE 79; RESP 16; TEMP 36.6; O2SAT 100
[2022-08-30 20:11] VITALS: BP 142/94; PULSE 74; RESP 18; O2SAT 99
--- NOTE | 2022-08-30 20:32 | ED.GENADULT ---
HPI - General Adult General Chief complaint: Fall Stated complaint: fall Time Seen by Provider: 08/30/22 20:13 Source: RN notes reviewed History of Present Illness HPI narrative: Patient presents emergency department from home for a fall. Patient states she was walking a parking lot today with her cane when she lost her balance and fell. States she does not recall specifically if she hit her head or had a loss of consciousness she states since that time she has had a headache as well as neck pain low back pain right hip pain bilateral knee and ankle pain. States that the pain is worse when she ambulates and states she does ambulate with a cane she denies any vision changes chest pain shortness of breath abdominal pain nausea vomiting numbness or tingling of the extremities or any other symptoms. States that she did try taking some ibuprofen at home for the pain. Related Data Home Medications Medication Instructions Recorded Confirmed diazepam 5 mg tablet 5 mg PO TID PRN Anxiety 04/06/19 07/12/22 duloxetine 60 mg capsule,delayed 60 mg PO DAILY 04/08/19 08/18/22 release quetiapine 300 mg tablet 400 mg PO DAILY 04/04/20 08/18/22 sertraline 100 mg tablet 100 mg PO DAILY 04/04/20 08/18/22 rimegepant 75 mg disintegrating 75 mg PO DAILY PRN Migraine 11/24/21 08/18/22 tablet (Nurtec ODT) Headache carbamazepine 200 mg tablet 400 mg PO TID 06/25/22 07/12/22 diphenhydramine HCl 50 mg capsule 50 mg PO HS PRN Allergy Symptoms 07/12/22 08/18/22 hydroxychloroquine 200 mg tablet 200 mg PO BID 07/12/22 08/18/22 losartan 25 mg tablet 25 mg PO DAILY 08/09/22 08/18/22 Allergies Allergy/AdvReac Type Severity Reaction Status Date / Time shellfish derived Allergy Mild Swelling Verified 08/30/22 20:14 of Lip/Tongue/Throat amoxicillin Allergy Unknown unknown Verified 08/30/22 20:14 buspirone [From BuSpar] Allergy Unknown unknown Verified 08/30/22 20:14 cephalexin [From Keflex] Allergy Unknown Unknown Verified 08/30/22 20:14 bee venom protein (honey bee) Allergy Swelling Verified 08/30/22 20:14 [bees] Sulfa (Sulfonamide Allergy Swelling Verified 08/30/22 20:14 Antibiotics) of Lip/Tongue/Throat egg AdvReac Mild Abdominal Verified 08/30/22 20:14 Pain ephedrine AdvReac Vomiting Verified 08/30/22 20:14 Review of Systems Review of Systems: Gen.: Denies fevers or chills Eyes: Denies eye pain or visual change ENT: Denies congestion Respiratory: Denies shortness of breath or cough CV: Denies chest pain or palpitations GI: Denies abdominal pain nausea, emesis or diarrhea denies b incontinence Musculoskeletal: See HPI Neuro: Denies numbness, tingling, weakness or focal weakness Skin: Denies rash Except as documented, all other systems reviewed and negative PMFSH Past Medical History Medical History Abnormal CT scan, kidney Allergic rhinitis Anal fissure Noted on colonoscopy from December of [address] Rodriguez Anemia Anxiety Arthritis of knee, right Asthma B12 deficiency Bipolar disorder Cholecystectomy planned Chondromalacia of right patellofemoral joint Chronic anemia COPD (chronic obstructive pulmonary disease) PFTs 2011 demonstrated mild obstructive disease Cystitis Degenerative joint disease of knee Degenerative joint disease of thumb Depression Diabetes mellitus Echocardiogram abnormal Echocardiogram October 2014 demonstrated EF of 60-65% with elevated right atrial pressures of 10-15 mmHg Eczema Essential (primary) hypertension Fatigue Former smoker Quit 1995 age 29; highest amount was 1.5 ppd for up to 19 years, 45 pack years. Gastro-esophageal reflux disease without esophagitis Health care maintenance Hepatosplenomegaly On imaging from November 2017 Herpes simplex type 2 infection Hyperlipidemia Injury of right thigh Internal hemorrhoids On colonoscopy from December 2014 Kidney stones Knee effusion, right Knee joint effusion Knee sprain
[2022-08-30] MEDS: HYDROcodone/acetaminophen (*CRX) 5-325 MG TABLET 1 TAB PO (21:12)
[2022-08-30 21:14] VITALS: BP 138/84; PULSE 76; RESP 16; O2SAT 100
[2022-08-30 22:27] VITALS: BP 142/86; PULSE 74; RESP 18; O2SAT 100
== END 2022-08-30 22:28 | disposition home or self-care (01) ==
PROVIDERS: Emergency Provider Emergency Medicine; PCP Internal Medicine
DX: S39.92XA Unspecified injury of lower back, initial encounter (principal); S16.1XXA Strain of muscle, fascia and tendon at neck level, initial encounter; S70.01XA Contusion of right hip, initial encounter; S80.02XA Contusion of left knee, initial encounter; S80.01XA Contusion of right knee, initial encounter; S96.911A Strain of unspecified muscle and tendon at ankle and foot level, right foot, initial encounter; S96.912A Strain of unspecified muscle and tendon at ankle and foot level, left foot, initial encounter; J45.909 Unspecified asthma, uncomplicated; J44.9 Chronic obstructive pulmonary disease, unspecified; I10 Essential (primary) hypertension; E11.9 Type 2 diabetes mellitus without complications; E78.5 Hyperlipidemia, unspecified; E53.8 Deficiency of other specified B group vitamins; E66.01 Morbid (severe) obesity due to excess calories; D64.9 Anemia, unspecified; Q61.3 Polycystic kidney, unspecified; M17.0 Bilateral primary osteoarthritis of knee; K21.9 Gastro-esophageal reflux disease without esophagitis; F31.9 Bipolar disorder, unspecified; F43.10 Post-traumatic stress disorder, unspecified; G47.30 Sleep apnea, unspecified; Z87.442 Personal history of urinary calculi; Z87.440 Personal history of urinary (tract) infections; Z87.891 Personal history of nicotine dependence; Z90.710 Acquired absence of both cervix and uterus; Z79.84 Long term (current) use of oral hypoglycemic drugs; M19.072 Primary osteoarthritis, left ankle and foot; M19.071 Primary osteoarthritis, right ankle and foot; M47.812 Spondylosis without myelopathy or radiculopathy, cervical region; M47.816 Spondylosis without myelopathy or radiculopathy, lumbar region; W18.39XA Other fall on same level, initial encounter
CPT/HCPCS: 70450; 72110; 72125; 73502; 73564; 73610; 99284; A9270

== ENCOUNTER 2022-09-19 13:18 | Emergency (ER) | payer MEDICARE, SELFPAY ==
[2022-09-19] VITALS (16 sets, daily range): BP systolic 91–132; BP diastolic 43–91; PULSE 89–99; RESP 14–24; TEMP 37.7; O2SAT 95–100
[2022-09-19 13:49] LABS: Basophils Percent Auto 0.3 % (0.2-1.2); Eosinophils Absolute Auto 0.1 K/mm3 (0-0.3); Eosinophils Percent Auto 0.6 % (0-4.4); Hematocrit 35.3 % (37.0-47.0); Hemoglobin 11.7 g/dL (12.0-15.0); Immature Granulocyte Absolute 0.02 K/mm3 (0.00-0.031); Immature Granulocyte Percent A 0.2 % (0-0.5); Lymphocytes Absolute Auto 0.15 K/mm3 (0.9-3.2); Lymphocytes Percent Auto 1.7 % (18.3-44.2); Mean Corpuscular HGB Conc 33.1 g/dl (32-36); Mean Corpuscular Hemoglobin 30.6 pg (26-34); Mean Corpuscular Volume 92.4 fl (80-100); Mean Platelet Volume 8.8 fl (7.4-10.4); Monocytes Absolute Auto 0.3 K/mm3 (0.1-0.6); Monocytes Percent Auto 3.6 % (2.6-8.5); Neutrophils Absolute Auto 8.3 K/mm3 (1.3-6.7); Neutrophils Percent Auto 93.6 % (45.5-73.1); Platelet Count Result 276 k/mm3 (150-375); Red Blood Count 3.82 M/mm3 (4.2-5.4); Red Cell Distribution Width 13.2 % (11.5-14.5); White Blood Count 8.9 K/mm3 (4.5-10.0)
--- NOTE | 2022-09-19 13:52 | PC.NURSE ---
While hookihn pt up pto montior and dressing pt in gown pt had 2 episodes of 10 seconds or less or seizure like activity of arm, legs, and head jerking. PT was able to talk to staff with seconds after episode. Pt A&Ox4, resp even non-labored. 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 PT also reports extensive psych dx. Speech clear at this time.
[2022-09-19] MEDS: SODIUM CHLORIDE 0.9% IV 1,000 ML 999 ML IV CONT ×2 (14:07→17:26)
[2022-09-19] MEDS: ONDANSETRON INJ 4 MG/2 ML VIAL IV PUSH (14:08)
[2022-09-19 14:12] LABS: Alanine Aminotransferase 24 U/L (6-35); Albumin Level 4.8 g/dL (3.5-5.1); Alkaline Phosphatase 100 U/L (38-126); Anion Gap 12 mmol/L (8-16); Aspartate Amino Transferase 31 U/L (14-36); Bilirubin,Total 0.5 mg/dL (0.2-1.3); Blood Urea Nitrogen 32 mg/dL (7-17); Calcium 10.2 mg/dL (8.4-10.2); Carbon Dioxide 25 mmol/L (22-30); Chloride 99 mmol/L (98-107); Estimated CRCL calculation 57 ml/min; Estimated Glomerular Filt Rate 39; Glucose 142 mg/dL (65-110); Lipase 134 U/L (23-300); Potassium 5.3 mmol/L (3.4-5.0); Sodium 136 mmol/L (137-145)
[2022-09-19 15:56] LABS: Appearance Urine Clear (Clear); Bacteria Urine None Seen /hpf; Bilirubin Urine Negative (Negative); Blood Urine Negative (Negative); Color Urine Yellow (Yellow); Glucose Urine UA Negative (Negative); Ketones Urine Negative (Negative); Leukocyte Esterase Ur Trace LEU/UL (Negative); Nitrate Urine Negative (Negative); Protein Urine Negative (Negative); RBC Urine 0-2 /hpf (0-2); Specific Grav Ur 1.018 (1.001-1.035); Squamous Epithelial Cell Urine None seen /hpf (Few); Urobilinogen Urine 0.2 mg/dL (<2.0); WBC Urine 0-5 /hpf
[2022-09-19] MEDS: MORPHINE SULFATE (*CRX) 4 MG/ML INJ IV PUSH (15:57)
[2022-09-19 16:00] LABS: Add Urine Microscopic? YES
--- NOTE | 2022-09-19 17:27 | ED.GENADULT ---
HPI - General Adult General Chief complaint: Nausea/Vomiting/Diarrhea Stated complaint: bilateral flank pain/vomiting Time Seen by Provider: 09/19/22 13:45 History of Present Illness HPI narrative: Patient is a 52-year-old female who presents ER with reports of vomiting and diarrhea. Ongoing over the last day. Reports her has similar GI illness. She is concerned it may be related to some Portuguese toast she made last night. No blood in her stool. She has some cramping in her back is concerned she may have urinary issues as well. No dysuria or urinary frequency or urgency. Patient also has history of psychogenic seizures, she has had a couple in triage but had none for me. Related Data Home Medications Medication Instructions Recorded Confirmed diazepam 5 mg tablet 5 mg PO TID PRN Anxiety 04/06/19 07/12/22 duloxetine 60 mg capsule,delayed 60 mg PO DAILY 04/08/19 08/18/22 release quetiapine 300 mg tablet 400 mg PO DAILY 04/04/20 08/18/22 sertraline 100 mg tablet 100 mg PO DAILY 04/04/20 08/18/22 rimegepant 75 mg disintegrating 75 mg PO DAILY PRN Migraine 11/24/21 08/18/22 tablet (Nurtec ODT) Headache carbamazepine 200 mg tablet 400 mg PO TID 06/25/22 07/12/22 diphenhydramine HCl 50 mg capsule 50 mg PO HS PRN Allergy Symptoms 07/12/22 08/18/22 hydroxychloroquine 200 mg tablet 200 mg PO BID 07/12/22 08/18/22 losartan 25 mg tablet 25 mg PO DAILY 08/09/22 08/18/22 Allergies Allergy/AdvReac Type Severity Reaction Status Date / Time shellfish derived Allergy Mild Swelling Verified 09/19/22 14:07 of Lip/Tongue/Throat amoxicillin Allergy Unknown unknown Verified 09/19/22 14:07 buspirone [From BuSpar] Allergy Unknown unknown Verified 09/19/22 14:07 cephalexin [From Keflex] Allergy Unknown Unknown Verified 09/19/22 14:07 bee venom protein (honey bee) Allergy Swelling Verified 09/19/22 14:07 [bees] Sulfa (Sulfonamide Allergy Swelling Verified 09/19/22 14:07 Antibiotics) of Lip/Tongue/Throat egg AdvReac Mild Abdominal Verified 09/19/22 14:07 Pain ephedrine AdvReac Vomiting Verified 09/19/22 14:07 Review of Systems Review of Systems: All systems reviewed & are unremarkable except as noted in HPI and below Constitutional: Constitutional: Denies chills, Denies fatigue and Denies fever(s) ENT: Denies nasal congestion and Denies sore throat Cardiovascular: Cardiovascular: Denies chest pain, Denies rapid heart rate and Denies radiating jaw, neck or arm pain Respiratory: Respiratory: Denies cough and Denies dyspnea Gastrointestinal: Gastrointestinal: Reports abdominal pain, Reports diarrhea, Reports nausea and Reports vomiting Genitourinary: Genitourinary: Denies hematuria, Denies dysuria and Reports flank pain PMFSH Past Medical History Medical History Abnormal CT scan, kidney Allergic rhinitis Anal fissure Noted on colonoscopy from December of [address] Rodriguez Anemia Anxiety Arthritis of knee, right Asthma B12 deficiency Bipolar disorder Cholecystectomy planned Chondromalacia of right patellofemoral joint Chronic anemia COPD (chronic obstructive pulmonary disease) PFTs 2011 demonstrated mild obstructive disease Cystitis Degenerative joint disease of knee Degenerative joint disease of thumb Depression Diabetes mellitus Echocardiogram abnormal Echocardiogram October 2014 demonstrated EF of 60-65% with elevated right atrial pressures of 10-15 mmHg Eczema Essential (primary) hypertension Fatigue Former smoker Quit 1995 age 29; highest amount was 1.5 ppd for up to 19 years, 45 pack years. Gastro-esophageal reflux disease without esophagitis Health care maintenance Hepatosplenomegaly On imaging from November 2017 Herpes simplex type 2 infection Hyperlipidemia Injury of right thigh Internal hemorrhoids On colonoscopy from December 2014 Kidney stones Knee effusion, right Knee joint effusion Knee sprain Left knee DJD Left kn
== END 2022-09-19 19:04 | disposition home or self-care (01) ==
PROVIDERS: Emergency Provider Emergency Medicine; PCP Internal Medicine
DX: K52.9 Noninfective gastroenteritis and colitis, unspecified (principal); D64.9 Anemia, unspecified; M19.90 Unspecified osteoarthritis, unspecified site; J45.909 Unspecified asthma, uncomplicated; E11.9 Type 2 diabetes mellitus without complications; I10 Essential (primary) hypertension; Z87.442 Personal history of urinary calculi
CPT/HCPCS: 36415; 80053; 81001; 83690; 85025; 96361; 96374; 96375; 99284; J2270; J2405; J7030

== ENCOUNTER 2023-02-18 10:34 | Outpatient (CLI) | payer MEDICARE, SELFPAY ==
[2023-02-18 11:18] LABS: Basophils Absolute Auto 0.1 K/mm3 (0.0-0.1); Basophils Percent Auto 0.9 % (0.2-1.2); Eosinophils Absolute Auto 0.1 K/mm3 (0-0.3); Eosinophils Percent Auto 1.9 % (0-4.4); Hematocrit 32.8 % (37.0-47.0); Hemoglobin 10.5 g/dL (12.0-15.0); Immature Granulocyte Absolute 0.02 K/mm3 (0.00-0.031); Immature Granulocyte Percent A 0.4 % (0-0.5); Lymphocytes Absolute Auto 2.01 K/mm3 (0.9-3.2); Lymphocytes Percent Auto 35.5 % (18.3-44.2); Mean Corpuscular Hemoglobin 30.8 pg (26-34); Mean Corpuscular Volume 96.2 fl (80-100); Mean Platelet Volume 8.6 fl (7.4-10.4); Monocytes Absolute Auto 0.3 K/mm3 (0.1-0.6); Monocytes Percent Auto 5.8 % (2.6-8.5); Neutrophils Absolute Auto 3.1 K/mm3 (1.3-6.7); Neutrophils Percent Auto 55.5 % (45.5-73.1); Platelet Count Result 276 k/mm3 (150-375); Red Blood Count 3.41 M/mm3 (4.2-5.4); White Blood Count 5.7 K/mm3 (4.5-10.0)
[2023-02-18 11:40] LABS: Alanine Aminotransferase 19 U/L (6-35); Albumin Level 4.4 g/dL (3.5-5.1); Alkaline Phosphatase 86 U/L (38-126); Anion Gap 4 mmol/L (8-16); Aspartate Amino Transferase 29 U/L (14-36); Bilirubin,Total 0.4 mg/dL (0.2-1.3); Blood Urea Nitrogen 24 mg/dL (7-17); Calcium 9.5 mg/dL (8.4-10.2); Carbon Dioxide 31 mmol/L (22-30); Chloride 104 mmol/L (98-107); Cholesterol 221 mg/dL (0-200); Estimated Glomerular Filt Rate > 60; Glucose 91 mg/dL (65-110); HDL Direct 48 mg/dL; Potassium 4.2 mmol/L (3.4-5.0); Sodium 139 mmol/L (137-145); Triglycerides 264 mg/dL (<150)
[2023-02-18 11:49] LABS: Creatinine Urine 113.1 mg/dL
[2023-02-18 11:52] LABS: LDL Cholesterol Direct 102 mg/dL
[2023-02-18 12:01] LABS: Hemoglobin A1C 5.7 % (<5.7)
[2023-02-18 12:02] LABS: Microalbumin Urine Random < 6.0 mg/L (0-16.7)
[2023-02-18 12:03] LABS: MALB Creatinine Ratio < 5.3 mg/g (0-30)
[2023-02-18 12:17] LABS: Thyroid Stimulating Hormone 0.996 uIU/mL (0.465-4.680)
[2023-02-18 12:51] LABS: Folic Acid 18.8 ng/mL (2.76->20)
== END 2023-02-18 10:35 | disposition home or self-care (01) ==
PROVIDERS: PCP Internal Medicine; Visit Provider Internal Medicine
DX: E11.9 Type 2 diabetes mellitus without complications (principal); R53.83 Other fatigue
CPT/HCPCS: 36415; 80053; 80061; 82043; 82607; 82746; 83036; 84443; 85025

== ENCOUNTER 2023-06-21 20:32 | Observation (INO) | payer MEDICARE, MEDICAID, SELFPAY ==
--- NOTE | ~2023-06-21 | CT_ITS ---
EXAMINATION: CTA chest PE protocol DATE: 06/21/2023 22:49 INDICATION: Chest pain. TECHNIQUE: Computed tomography angiography (CTA) of the chest was performed with 100 mL Omnipaque-350 intravenous contrast timed to evaluate the pulmonary arteries. Coronal maximum intensity projection 3D-reconstructions were created by the technologist. Automated exposure control and iterative reconst ruction technique were employed. The dose-length product was 1096.18 mGy-cm. COMPARISON: Chest CT 06/19/2022, thyroid ultrasound 04/17/2021. FINDINGS: There is mild atelectasis bilaterally. No pleural effusion. There are nodules in the thyroi d measuring up to 20 mm on the left. The heart size is normal. No pericardial effusion. There is no p ulmonary embolus. There are changes of cholecystectomy. There is cortical thinning of the kidneys. Th ere is severe thoracic spondylosis. There is mild chronic anterior wedging of multiple vertebral bodi es. IMPRESSION: 1. No pulmonary embolus. Sensitivity is mildly decreased by motion artifact. 2. Multinodular goiter. Ultrasound-guided aspiration of two nodules was recommended on the ultrasound from 04/17/21. Reviewed, dictated and finalized at location E. AND VAULT INSTALLER IMPRESSION: 1. No pulmonary embolus. Sensitivity is mildly decreased by motion artifact. 2. Multinodular goiter. Ultrasound-guided aspiration of two nodules was recomme nded on the ultrasound from 04/17/21.
--- NOTE | ~2023-06-21 | XR_ITS ---
EXAMINATION: XR chest 1V portable DATE: 06/21/2023 20:57 INDICATION: Chest pain. Arm pain. TECHNIQUE: A single frontal view of the chest was obtained. COMPARISON: Chest 2 views 06/19/2022 FINDINGS: There is no pneumonia, pleural effusion, or pneumothorax. The heart size is normal. IMPRESSION: 1. No acute cardiopulmonary disease. Reviewed, dictated and finalized at location E. Y LEVEL ACCOUNTING CLERK
--- NOTE | ~2023-06-21 | NM_ITS ---
EXAMINATION: NM torie stress w perfusion DATE: 06/22/2023 13:43 INDICATION: Chest pain TECHNIQUE: Rest images were obtained following intravenous administration of 10.3 mCi Tc99m tetrofosm in (Myoview). Study was terminated prior to administration of the second dose for the stress portion of the examination due to deterioration in patient condition for which rapid response was called. COMPARISON: None. FINDINGS: Incomplete study with only the triplanar images obtained during rest. No stress images were recorded. The rest images appear unremarkable with no definitive perfusion defects appreciated. IMPRESSION: 1. Incomplete study with unremarkable appearing rest perfusion images. The stress portion of the exam ination was unable to be obtained due to deterioration and patient condition necessitating a rapid re sponse call. Reviewed, dictated and finalized at location A. E POLISHER IMPRESSION: 1. Incomplete study with unremarkable appearing rest perfusion images. The stre ss portion of the examination was unable to be obtained due to deterioration an d patient condition necessitating a rapid response call.
[2023-06-21 20:33] VITALS: BP 129/96; PULSE 80; RESP 15; TEMP 36.6; O2SAT 96
--- NOTE | 2023-06-21 20:35 | ECG_ITS ---
Measurements Intervals [place] Rate: 78 P: 16 MA: 172 QRS: 28 QRSD: 104 T: 83 QT: 416 QTc: 476 Interpretive Statements SINUS RHYTHM BORDERLINE ST-T WAVE ABNORMALITY- HIGH LATERAL LEADS BORDERLINE ECG COMPARED TO ECG 06/19/2022 17:17:19 NO SIGNIFICANT CHANGES Electronically Signed On 06-21-2023 20:49:20 LOGISTICS OFFICER by Von Cardenas D.O.
[2023-06-21 21:02] LABS: Basophils Absolute Auto 0.1 K/mm3 (0.0-0.1); Basophils Percent Auto 0.7 % (0.2-1.2); Eosinophils Absolute Auto 0.3 K/mm3 (0-0.3); Eosinophils Percent Auto 3.9 % (0-4.4); Hematocrit 32.4 % (37.0-47.0); Hemoglobin 10.2 g/dL (12.0-15.0); Immature Granulocyte Absolute 0.03 K/mm3 (0.00-0.031); Immature Granulocyte Percent A 0.4 % (0-0.5); Lymphocytes Absolute Auto 2.37 K/mm3 (0.9-3.2); Lymphocytes Percent Auto 33.1 % (18.3-44.2); Mean Corpuscular HGB Conc 31.5 g/dl (32-36); Mean Corpuscular Hemoglobin 29.8 pg (26-34); Mean Corpuscular Volume 94.7 fl (80-100); Mean Platelet Volume 8.7 fl (7.4-10.4); Monocytes Absolute Auto 0.3 K/mm3 (0.1-0.6); Monocytes Percent Auto 4.7 % (2.6-8.5); Neutrophils Absolute Auto 4.1 K/mm3 (1.3-6.7); Neutrophils Percent Auto 57.2 % (45.5-73.1); Platelet Count Result 285 k/mm3 (150-375); Red Blood Count 3.42 M/mm3 (4.2-5.4); White Blood Count 7.2 K/mm3 (4.5-10.0)
[2023-06-21 21:10] VITALS: O2SAT 99
[2023-06-21 21:12] LABS: Alanine Aminotransferase 17 U/L (6-35); Albumin Level 3.9 g/dL (3.5-5.1); Alkaline Phosphatase 104 U/L (38-126); Anion Gap 5 mmol/L (8-16); Aspartate Amino Transferase 27 U/L (14-36); Bilirubin,Total 0.2 mg/dL (0.2-1.3); Blood Urea Nitrogen 19 mg/dL (7-17); Calcium 9.2 mg/dL (8.4-10.2); Carbon Dioxide 29 mmol/L (22-30); Chloride 101 mmol/L (98-107); Estimated CRCL calculation 113 ml/min; Estimated Glomerular Filt Rate > 60; Glucose 124 mg/dL (65-110); Lipase 115 U/L (23-300); Potassium 4.3 mmol/L (3.4-5.0); Sodium 135 mmol/L (137-145)
[2023-06-21 21:15] LABS: Prothrombin Time 13.2 Seconds (11.1-14.7)
[2023-06-21 21:16] LABS: Partial Thromboplastin Time 39.6 SECONDS (22.3-36.8)
[2023-06-21 21:24] LABS: NT Pro B Type Natriuretic Pept 103 pg/mL (19.9-100); Troponin I < 0.012 ng/mL (0.000-0.034)
[2023-06-21 21:34] LABS: D Dimer 0.64 ug/mL (<0.48)
--- NOTE | 2023-06-21 22:03 | ED.CHESTPAIN ---
HPI - Chest Pain General Chief Complaint: Chest Pain Stated Complaint: chest pain Time Seen by Provider: 06/21/23 21:16 Source: patient Limitations: no limitations History of Present Illness HPI narrative: Patient is a 53-year-old female presents to the emergency department complaining of chest pain. Patient states the pain started around 7:30 p.m. tonight while she was resting, described as a pressure an open sitting on her chest in the middle, comes and goes, worse with exertion, took an aspirin and multiple nitroglycerin in which the nitroglycerin did help, admits to a history of this pain in the past back in 2010 where she was told she has a history of heart attack but denies any history of stents or CABG and admits to seeing her doctor and the pain has been it has been awhile since she last saw Dr. Cottrell. Patient denies radiation of the chest pain. Patient admits to some left arm discomfort throughout the day today she was unsure that was her neuropathy but denies any recent injuries. Patient denies recent illness, fever, melena, hematochezia, dysuria, abdominal pain, nausea, vomiting, diarrhea, numbness, weakness, nasal congestion. Patient admits to a slight cough with minimal sputum production the patient is to history of high blood pressure, diabetes, cholesterol abnormalities, former smoker which she quit back in 1994. Patient denies history of blood clots or unilateral lower extremity swelling. Related Data Home Medications Medication Instructions Recorded Confirmed diazepam 5 mg tablet 5 mg PO TID PRN Anxiety 04/06/19 06/22/23 duloxetine 60 mg capsule,delayed 60 mg PO DAILY 04/08/19 06/22/23 release quetiapine 300 mg tablet 400 mg PO HS 04/04/20 06/22/23 sertraline 100 mg tablet 100 mg PO HS 04/04/20 06/22/23 carbamazepine 200 mg tablet 400 mg PO TID 06/25/22 06/22/23 losartan 25 mg tablet 25 mg PO DAILY 08/09/22 06/22/23 gabapentin 300 mg capsule 600 mg PO TID 06/22/23 06/22/23 quetiapine 25 mg tablet 25 mg PO HS 06/22/23 06/22/23 sumatriptan succinate 25 mg tablet 25 mg PO DAILY PRN Headache 06/22/23 06/22/23 Allergies Allergy/AdvReac Type Severity Reaction Status Date / Time shellfish derived Allergy Mild Swelling Verified 05/06/23 11:26 of Lip/Tongue/Throat amoxicillin Allergy Unknown unknown Verified 05/06/23 11:26 buspirone [From BuSpar] Allergy Unknown unknown Verified 05/06/23 11:26 cephalexin [From Keflex] Allergy Unknown Unknown Verified 05/06/23 11:26 bee venom protein (honey bee) Allergy Swelling Verified 05/06/23 11:26 [bees] Sulfa (Sulfonamide Allergy Swelling Verified 05/06/23 11:26 Antibiotics) of Lip/Tongue/Throat egg AdvReac Mild Abdominal Verified 05/06/23 11:26 Pain ephedrine AdvReac Vomiting Verified 05/06/23 11:26 Review of Systems Review of Systems: A 10 system review of systems was completed on the patient and is negative except for what is stated in the HPI. Nursing and ancillary documentation was reviewed. [facility] Past Medical History Medical History Abnormal CT scan, kidney Allergic rhinitis Anal fissure Noted on colonoscopy from December of [address] Rodriguez Anemia Anxiety Arthritis of knee, right Asthma B12 deficiency Bipolar disorder Cholecystectomy planned Chondromalacia of right patellofemoral joint Chronic anemia COPD (chronic obstructive pulmonary disease) PFTs 2011 demonstrated mild obstructive disease Cystitis Degenerative joint disease of knee Degenerative joint disease of thumb Depression Diabetes mellitus Echocardiogram abnormal Echocardiogram October 2014 demonstrated EF of 60-65% with elevated right atrial pressures of 10-15 mmHg Eczema Essential (primary) hypertension Fatigue Former smoker Quit 1994 age 29; highest amount was 1.5 ppd for up to 19 years, 45 pack years. Gastro-esophageal reflux disease without esophagitis Health care maintenance Hepatosplenomegaly On imagin
[2023-06-21 22:39] LABS: Appearance Urine Clear (Clear); Bilirubin Urine Negative (Negative); Blood Urine Negative (Negative); Color Urine Yellow (Yellow); Glucose Urine UA Negative (Negative); Ketones Urine Negative (Negative); Leukocyte Esterase Ur Negative LEU/UL (Negative); Nitrate Urine Negative (Negative); Protein Urine Negative (Negative); Urobilinogen Urine 0.2 mg/dL (<2.0)
[2023-06-21 22:49] VITALS: PULSE 82
[2023-06-21 22:49] LABS: Add Urine Microscopic? NO
[2023-06-21 23:18] LABS: Influenza A QL RT-PCR Negative (Negative); Influenza B QL RT-PCR Negative (Negative); RSV RNA, RT-PCR Negative (Negative); SARS-CoV-2 RNA PCR Negative (Negative)
--- NOTE | 2023-06-21 23:44 | PM.IMHP ---
H&P: HPI History of Present Illness Date/Time: 06/21/23 23:44 Chief Complaint: chest pain Narrative: This is a 53-year-old female with past medical history significant for morbid obesity, COPD/emphysema, type diabetes mellitus, pseudo-seizure, hypertension. Patient presents to emergency room due to chest pain localized to precordial area states that feels like an elephant sitting on chest started at around 7:30 a.m. in the evening at the time of my visit patient states that pain is on and off it is now worse with a deep breath not related to food intake has been her usual state of health up until this time although expresses that she is under a lot of stress due to undergoing divorce. Denies any nausea, vomiting, shortness of breath, abdominal pain, vomiting, syncope or near-syncope, no leg swelling, no fevers no rigors no chills no cough no sputum production. EXAMINATION: XR chest 1V portable DATE: 06/21/2023 20:57 INDICATION: Chest pain. Arm pain. TECHNIQUE: A single frontal view of the chest was obtained. COMPARISON: Chest 2 views 06/19/2022 FINDINGS: There is no pneumonia, pleural effusion, or pneumothorax. The heart size is normal. IMPRESSION: 1. No acute cardiopulmonary disease. EXAMINATION: CTA chest PE protocol DATE: 06/21/2023 22:49 INDICATION: Chest pain. TECHNIQUE: Computed tomography angiography (CTA) of the chest was performed with 100 mL Omnipaque-350 intravenous contrast timed to evaluate the pulmonary arteries. Coronal maximum intensity projection 3D-reconstructions were created by the technologist. Automated exposure control and iterative reconstruction technique were employed. The dose-length product was 1096.18 mGy-cm. COMPARISON: Chest CT 06/19/2022, thyroid ultrasound 04/17/2021. FINDINGS: There is mild atelectasis bilaterally. No pleural effusion. There are nodules in the thyroid measuring up to 20 mm on the left. The heart size is normal. No pericardial effusion. There is no pulmonary embolus. There are changes of cholecystectomy. There is cortical thinning of the kidneys. There is severe thoracic spondylosis. There is mild chronic anterior wedging of multiple vertebral bodies. IMPRESSION: 1. No pulmonary embolus. Sensitivity is mildly decreased by motion artifact. 2. Multinodular goiter. Ultrasound-guided aspiration of two nodules was recommended on the ultrasound from 04/17/21. EKG Rate 78 SC 172 QRSd 104 QT 416 QTc 476 --Allen-- P 16 QRS 28 T [address]-T WAVE ABNORMALITY- HIGH LATERAL LEADS BORDERLINE ECG COMPARED TO ECG 06/19/2022 17:17:19 NO SIGNIFICANT CHANGES Electronically Signed On 06-21-2023 20:49:20 PRECISION MACHINING INSTRUCTOR by Von Cardenas D.O. Review of Systems Review of Systems: Chest pain Constitutional: Constitutional: Denies chills, Reports fatigue, Denies fever(s), Reports lethargy, Denies night sweats and Reports weakness Eyes: Eyes: Denies change in vision ENT: Denies dysphagia, Denies vertigo, Denies dizziness and Denies odynophagia Cardiovascular: Cardiovascular: Reports chest pain, Denies leg edema, Reports radiating jaw, neck or arm pain and Denies palpitations Respiratory: Respiratory: Denies chest congestion, Denies cough, Denies excessive phlegm production, Denies dyspnea and Denies wheezing Gastrointestinal: Gastrointestinal: Denies abdominal pain, Denies dyspepsia, Denies heartburn, Denies nausea and Denies vomiting Genitourinary: Genitourinary: Denies dysuria Musculoskeletal: Musculoskeletal: Reports muscle weakness Comments: Patient uses a walker as a walking aid Integumentary/Breasts: Skin/Breast: Denies rash Neurologic: Denies focal weakness and Denies Sensory deficit (Neuro) Comments: Uses walker as a walking aid Psychiatric: Psychiatric: Reports no additional psychiatric complaints and Reports as per HPI Endocrine: Endocrine: Denies cold intolerance, Denies fatigue, Denies flushing, Denies heat intolerance, Denies polyphagia, Yamil
[2023-06-22] VITALS (18 sets, daily range): BP systolic 117–155; BP diastolic 67–86; PULSE 65–77; RESP 16–18; TEMP 36.1–36.7; O2SAT 95–99; BMI 51.5
--- NOTE | 2023-06-22 | ECHO_ITS ---
Patient Info Name: Estee Plasencia Age: 53 years : 1970 Gender: Female Ht: 65 in Wt: 309 lbs BSA: 2.62 m2 HR: 68 bpm BP: 123 / 67 mmHg Heart Rhythm: Sinus Rhythm Technical Quality: Poor Exam Date: 06/22/2023 8:54 AM Exam Location: Echo Lab Patient Status: Inpatient Admit Date: 06/21/2023 Staff Ordering Physician: Fareed Mack MD Encoding Machine Operator: Jamel Suero RDCS Attending Provider: Fareed Mack MD Referring Physician: Frederick MARQUES; Exam Type: CA echo dop color flow w con Study Info Indications - chest pain Complete two-dimensional, color flow and Doppler transthoracic echocardiogram is performed with contrast to opacify the left ventricle and to improve the deliniation of the left ventricle endocardial borders. Contrast/Agitated Saline Contrast/Ag. Saline: Definity Amount: 3.00 ml Reason for Poor Study: poor echocardiographic windows Summary 1. Technically difficult study due to body habitus. 2. Left ventricular chamber dimension is normal. 3. Left ventricular systolic function is normal, estimated at 65-70%. 4. There is mildly increased left ventricular wall thickness. 5. The left ventricular diastolic function is grade I diastolic dysfunction. 6. Right ventricular systolic function is normal. 7. No significant valvular disease. Left Ventricle Left ventricular chamber dimension is normal. Left ventricular systolic function is normal, estimated at 65-70%. There is mildly increased left ventricular wall thickness. The left ventricular diastolic function is grade I diastolic dysfunction. Right Ventricle Right ventricular chamber dimension is normal. Right ventricular systolic function is normal. Left Atria Left atrial chamber dimension is normal. Right Atria Right atrial chamber dimension is normal. Atrial Septum Intact interatrial septum visualized by color flow imaging. Aortic Valve The aortic valve is not well visualized. There is no aortic valve stenosis. There is no aortic valve regurgitation. Pulmonic Valve The pulmonic valve is not well visualized. Mitral Valve There is trace mitral valve regurgitation. Tricuspid Valve There is trace tricuspid valve regurgitation. Pericardium/Pleural The pericardium appears epicardial fat pad. There is no pericardial effusion. Inferior Vena Cava Normal inferior vena cava with >50% collapse upon inspiration consistent with normal right atrial pressure, 3 mmHg. Aorta The aortic root size at the sinus of Valsalva is normal. Left Ventricular Outflow Tract Name Value Normal LVOT 2D LVOT Diameter 2.19 cm LVOT Doppler LVOT Peak Gradient 3 mmHg LVOT Mean Gradient 1 mmHg LVOT VTI 24.69 cm LVOT VTI/AV VTI Ratio 0.81 LVOT Stroke Volume 92.94 ml LVOT CO 3.34 l/min LVOT CI 1.28 L/min/m2 Pulmonic Valve Name Value Normal
[2023-06-22 00:31] LABS: Troponin I < 0.012 ng/mL (0.000-0.034)
--- NOTE | 2023-06-22 02:01 | ADMGEN ---
This patient, Estee Plasencia, was admitted to IMU Room 209-01. Patient/family oriented to hospital policies and general routines including ID bracelet, bed and alarms, visiting hours, pain management, procedures, bathroom and other care routines, personal items, smoking policy, room service/diet, and visiting hours. Information on how to activate the Rapid Response Team has been discussed. Patient/Family are encouraged to report perceived risks to care and to ask questions if they do not understand what they are told or what they should do.
[2023-06-22 03:58] LABS: Troponin I < 0.012 ng/mL (0.000-0.034)
[2023-06-22] MEDS: PERFLUTREN LIPID MICROSPHERES 1.5 ML VIAL DILUTED TO 10 ML TOTAL VOLUME IV PUSH (09:20)
[2023-06-22] MEDS: ACYCLOVIR 400 MG TABLET PO ×2 (10:02→21:08)
[2023-06-22] MEDS: GABAPENTIN 300 MG CAPSULE 600 MG PO ×3 (10:02→17:57)
[2023-06-22] MEDS: DULoxetine HCL 60 MG CAPSULE.DR PO (10:03)
[2023-06-22] MEDS: LOSARTAN POTASSIUM 25 MG TABLET PO (10:03)
--- NOTE | 2023-06-22 10:20 | PM.IMPN ---
Progress Note: A&P Assessment and Plan (1) Chest pain: Qualifiers: Chest pain type: unspecified Qualified Code(s): R07.9 - Chest pain, unspecified Code(s): R07.9 - Chest pain, unspecified Status: Acute Assessment and Plan: -continue telemetry monitoring -recheck troponin -repeat EKG -Echocardiogram in a.m. -Cardiology consult appreciate recommendation and plan (2) Physical deconditioning: Code(s): R53.81 - Other malaise Status: Acute Assessment and Plan: - PT OT consult (3) LISA (obstructive sleep apnea): Code(s): G47.33 - Obstructive sleep apnea (adult) (pediatric) Status: Acute Assessment and Plan: CPAP at nighttime, use home settings (4) POTS (postural orthostatic tachycardia syndrome): Code(s): I49.8 - Other specified cardiac arrhythmias Status: Acute Assessment and Plan: Supportive care (5) Morbid obesity with BMI of 45.0-49.9, adult: Code(s): E66.01 - Morbid (severe) obesity due to excess calories; Z68.42 - Body mass index [BMI] 45.0-49.9, adult Status: Acute Assessment and Plan: 1800 calorie restricted diet carb consistent (6) Gastro-esophageal reflux disease without esophagitis: Code(s): K21.9 - Gastro-esophageal reflux disease without esophagitis Status: Acute Assessment and Plan: PPI (7) COPD (chronic obstructive pulmonary disease): Code(s): J44.9 - Chronic obstructive pulmonary disease, unspecified Status: Chronic Assessment and Plan: Not in exacerbation Resume home meds (8) Psychogenic nonepileptic seizure: Code(s): 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 - Conversion disorder with seizures or convulsions Status: Chronic Assessment and Plan: Stable, compliant with medication -continue home medication (9) Diabetes mellitus: Code(s): E11.9 - Type 2 diabetes mellitus without complications Status: Acute Assessment and Plan: -holding metformin, last A1c was 02/18/2023, 5.7 -recheck A1c, triglycerides -insulin sliding scale as needed -hypoglycemic management per protocol Plan Plan to discharge pt in the am -patient was unable to complete [place] stress scan due to patient becoming anxious, reporting she was having a seizure which developed into a rapid response call -will consult Cardiology in the a.m. -downgrade [place] [facility] [place] Subjective Date/time seen: 06/22/23 10:20 Interval history: This is a 53-year-old female with past medical history significant for morbid obesity, COPD/emphysema, type diabetes mellitus, pseudo-seizure, hypertension.? Patient presents to emergency room due to chest pain localized to precordial area states that feels like an elephant sitting on chest started at around 7:30 a.m. in the evening at the time of my visit patient states that pain is on and off it is now worse with a deep breath not related to food intake has been her usual state of health up until this time although expresses that she is under a lot of stress due to undergoing divorce.? Denies any nausea, vomiting, shortness of breath, abdominal pain, vomiting, syncope or near-syncope, no leg swelling, no fevers no rigors no chills no cough no sputum production. Interval history: 06/22/2023: patient seen this morning she is resting in the bed, in no acute distress, she denies any overnight events. She reports unsure if she received all her medications this morning, she states she declined her seizure medication by mistake. Currently on room air, she reports mild reproducible chest pain that has been ongoing for past 3 days located left costochondral area. Review of Systems Review of Systems: Chest pain All systems reviewed & are unremarkable except as noted in HPI and below Exam Narrative: General: A obese , nontoxic-appearing female sitting up in bed, no acute distress HEENT: PERRL, EOMI. Oral mucosa moist. Neck: Supple. No midline cervic
--- NOTE | 2023-06-22 10:25 | ECG_ITS ---
Measurements Intervals [place] Rate: 68 P: 18 OK: 175 QRS: 26 QRSD: 108 T: 86 QT: 444 QTc: 474 Interpretive Statements SINUS RHYTHM NONSPECIFIC ST-T WAVE ABNORMALITY- HIGH LATERAL LEADS BORDERLINE ECG COMPARED TO ECG 06/21/2023 20:47:53 NO SIGNIFICANT CHANGES Electronically Signed On 06-22-2023 13:53:34 RN RESOURCE NURSE by Von Cardenas D.O.
[2023-06-22 10:45] LABS: Hemoglobin A1C 6.6 % (<5.7)
--- NOTE | 2023-06-22 10:48 | PM.CNCAR ---
History of Present Illness History of Present Illness Consult date/time: 06/22/23 10:48 Reason For Visit: Chest Pain Narrative: Shira Plasencia as a 53-year-old female whom I was asked to see at the request of Dr. Mack for my advice and opinion regarding her AFib RVR, in consultation. [facility] Past Medical History Medical History Abnormal CT scan, kidney Allergic rhinitis Anal fissure Noted on colonoscopy from December of [address] Rodriguez Anemia Anxiety Arthritis of knee, right Asthma B12 deficiency Bipolar disorder Cholecystectomy planned Chondromalacia of right patellofemoral joint Chronic anemia COPD (chronic obstructive pulmonary disease) PFTs 2011 demonstrated mild obstructive disease Cystitis Degenerative joint disease of knee Degenerative joint disease of thumb Depression Diabetes mellitus Echocardiogram abnormal Echocardiogram October 2014 demonstrated EF of 60-65% with elevated right atrial pressures of 10-15 mmHg Eczema Essential (primary) hypertension Fatigue Former smoker Quit 1995 age 29; highest amount was 1.5 ppd for up to 19 years, 45 pack years. Gastro-esophageal reflux disease without esophagitis Health care maintenance Hepatosplenomegaly On imaging from November 2017 Herpes simplex type 2 infection Hyperlipidemia Injury of right thigh Internal hemorrhoids On colonoscopy from December 2014 Kidney stones Knee effusion, right Knee joint effusion Knee sprain Left knee DJD Left knee pain Morbid obesity with BMI of 50.0-59.9, adult Multiple personality disorder Per patient report Myalgia Physical deconditioning Polycystic kidney disease Poor balance Psychogenic nonepileptic seizure PTSD (post-traumatic stress disorder) Right knee DJD Sleep apnea in adult With recommended CPAP 12 on polysomnogram from 2015 Strain of calf muscle Strain of right calf muscle Tonsillectomy planned Trigger thumb Trochanteric bursitis, right hip UTI (urinary tract infection) Vaginal candidiasis Surgical History Surgical History H/O cardiac catheterization Performed in 2010 without evidence of significant disease H/O dilation and curettage H/O myomectomy H/O: hysterectomy History of colposcopy History of conization of cervix Hx of cholecystectomy 1996 Hx of tonsillectomy 1974 S/P right knee arthroscopy 1992 [place] teeth removed Family History Family History Sibling Patient's brother is in good health Family history of gastrointestinal disorder Father Family history of malignant melanoma Patient's father is Mother Family history of malignant neoplasm of ovary Patient's mother is Sibling Cushings syndrome Other Family history of alcoholism Family history of arthritis Family history of heart disease in male family member before age 55 Family history of mental disorder Hypertension Social History Social History Social History: The patient lives at home with her of 21 years. She is on disability. She is a former smoker and used to smoke 2 and half packs of cigarettes a day for 17 years. She quit smoking in 1994. She stated that she started smoking at 8 years of age. She quit drinking alcohol altogether 1993. She denies a history of heavy alcohol use in the past. She denies any illicit substance use history. Smoking packs per day: 2 Smoking cigarettes per day: 40.0 Years smoked: 17 Smoking pack-years: 34.00 Smoking status: Former smoker Tobacco type: cigarettes Second hand tobacco smoke exposure: Yes Smoking end date: 06/06/96 Alcohol intake: never Substance use: never Do You Feel Safe in your Home?: Yes Lack of Transportation: YES Lack of Food: Never True Current Housing: I Have Housing Concerned
[2023-06-22 10:59] LABS: Triglycerides 617 mg/dL (<150)
--- NOTE | 2023-06-22 11:08 | PM.CNCAR ---
Assessment and Plan Assessment and plan (1) Chest pain: Qualifiers: Chest pain type: unspecified Qualified Code(s): R07.9 - Chest pain, unspecified Code(s): R07.9 - Chest pain, unspecified Status: Acute Assessment and Plan: Troponins are negative. EKGs are unchanged compared to old EKG. Has been chest pain free now. Will obtain Lexiscan stress test. Start ASA 81mg once daily. On Pravastatin at home -- given her diabetes, she should be on a high intensity statin. Stop Pravastatin and start high-intensity Atorvastatin. If Lexiscan is negative, patient can be discharged home and will arrange outpatient follow up in my office. (2) Diabetes mellitus: Code(s): E11.9 - Type 2 diabetes mellitus without complications Status: Acute Assessment and Plan: Management as per primary team. (3) Morbid obesity with BMI of 45.0-49.9, adult: Code(s): E66.01 - Morbid (severe) obesity due to excess calories; Z68.42 - Body mass index [BMI] 45.0-49.9, adult Status: Acute Assessment and Plan: Recommend weight loss (4) Hyperlipidemia: Code(s): E78.5 - Hyperlipidemia, unspecified Status: Acute Assessment and Plan: On Pravastatin at home -- given her diabetes, she should be on a high intensity statin. Stop Pravastatin and start high-intensity Atorvastatin. (5) Hypertension: Code(s): I10 - Essential (primary) hypertension Status: Acute Assessment and Plan: Continue home antihypertensive medications. History of Present Illness History of Present Illness Consult date/time: 06/22/23 11:08 Requesting physician: Fareed Mack MD Consult reason: chest pain Reason For Visit: Chest Pain Narrative: We are consulted for chest pain. This is a 53 year old female with morbid obesity, type 2 diabetes mellitus, hypertension, hyperlipidemia, LISA, GERD, depression who presented to [facility] for chest pain. Was previously seeing Dr. Klein, last visit was in July 2022. MPI had been ordered at that time, but not done. Patient reports that she developed left arm discomfort yesterday and had left sided chest pain that began around 7:30 PM last night and became progressively worse. Given ASA and NTG by EMS which helped relieve the pain. ER workup showed negative troponins. Chest CTA with no PE, no acute findings. EKG with sinus rhythm with STTW abnormality in the high lateral leads, which is unchanged compared to prior EKG. Patient has remained chest pain free overnight. Of note, patient states she is currently under a lot of stress as she is going through a divorce. Her sees Dr. 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 Review of Systems Review of Systems: All systems reviewed & are unremarkable except as noted in HPI and below (HPI) [facility] Past Medical History Medical History Abnormal CT scan, kidney Allergic rhinitis Anal fissure Noted on colonoscopy from December of [address] Rodriguez Anemia Anxiety Arthritis of knee, right Asthma B12 deficiency Bipolar disorder Cholecystectomy planned Chondromalacia of right patellofemoral joint Chronic anemia COPD (chronic obstructive pulmonary disease) PFTs 2011 demonstrated mild obstructive disease Cystitis Degenerative joint disease of knee Degenerative joint disease of thumb Depression Diabetes mellitus Echocardiogram abnormal Echocardiogram October 2014 demonstrated EF of 60-65% with elevated right atrial pressures of 10-15 mmHg Eczema Essential (primary) hypertension Fatigue Former smoker Quit 1994 age 29; highest amount was 1.5 ppd for up to 19 years, 45 pack years. Gastro-esophageal reflux disease without esophagitis Health care maintenance Hepatosplenomegaly On imaging from November 2017 Herpes simplex type 2 infection H
--- NOTE | 2023-06-22 11:15 | IVDEFINITY ---
Prior to administration of IV Definity the patient was educated on the risks and benefits of the imaging enhancing agent including potential adverse side effects. The patient verbalized understanding. Allergies were verified. No exclusion criteria were identified and at least one of the following inclusion criteria were met: 1) physician request, 2) patient technically difficult to image (per the [place] [employer] guidelines of two or more segments not discernable within the apical view), or 3) questionable left ventricular function. ?
[2023-06-22] MEDS: ASPIRIN 81 MG ENTERIC TABLET PO (11:22)
[2023-06-22] MEDS: ATORVASTATIN 40 MG TABLET 80 MG PO (11:22)
[2023-06-22 11:34] LABS: Troponin I < 0.012 ng/mL (0.000-0.034)
[2023-06-22] MEDS: diazePAM (*CRX) 5 MG TABLET PO ×2 (11:44→21:08)
[2023-06-22] MEDS: carBAMazepine 200 MG TABLET 400 MG PO ×2 (13:06→17:57)
[2023-06-22 13:10] LABS: Glucose Point of Care 113 mg/dl (65-105)
--- NOTE | 2023-06-22 15:13 | PC.NURSE ---
1253 This nurse was summoned to Nuclear medicine per overhead Rapid response. The pt was noted in w/c speaking et alert et reporting a active seizure. The pt states I get like this when I have not had my medicine. The pt was referring to PRN Valium. The medication was given per MAR at the pts request. The pt was able to hold conversation with staff et was transported to the room per w/c et accompanied by staff. A second pseudoseizure noted in the elevator. The pt was able to talk during events. The pt endorsed she has a history of pseudo seizures. The POC was reviewed, the pt was given, a sandwich due to reporting she was hungry. The provider at the bedside et given report. No further episode noted at this time.
[2023-06-22] MEDS: SUMAtriptan SUCCINATE 25 MG TABLET PO (15:30)
[2023-06-22 16:57] LABS: Glucose Point of Care 106 mg/dl (65-105)
[2023-06-22] MEDS: INSULIN ASPART (*BKC) 100 UNITS/ML 7 UNITS SUB-Q (17:56)
[2023-06-22 20:28] LABS: Glucose Point of Care 112 mg/dl (65-105)
[2023-06-22] MEDS: QUEtiapine FUMARATE 100 MG TABLET 400 MG PO (21:07)
[2023-06-22] MEDS: QUEtiapine FUMARATE 25 MG TABLET PO (21:08)
[2023-06-22] MEDS: CYCLOBENZAPRINE HCL 10 MG TABLET PO (21:08)
[2023-06-22] MEDS: PANTOPRAZOLE 40 MG TABLET PO (21:08)
[2023-06-22] MEDS: SERTRALINE HCL 50 MG TABLET 100 MG PO (21:08)
--- NOTE | 2023-06-22 21:32 | PC.NURSE ---
This patient, Estee Plasencia, was transferred to [facility] on 06/22/23 at 2130. Personal belongings sent with patient. Report given to TATYANA Medina. Appropriate documentation sent with patient.
[2023-06-23] VITALS: PULSE 77
[2023-06-23 04:00] VITALS: PULSE 67
[2023-06-23 04:35] VITALS: BP 131/78; PULSE 64; RESP 18; TEMP 36.6; O2SAT 96
[2023-06-23 06:13] LABS: Basophils Percent Auto 0.8 % (0.2-1.2); Eosinophils Absolute Auto 0.2 K/mm3 (0-0.3); Eosinophils Percent Auto 3.5 % (0-4.4); Immature Granulocyte Absolute 0.02 K/mm3 (0.00-0.031); Immature Granulocyte Percent A 0.4 % (0-0.5); Lymphocytes Absolute Auto 1.88 K/mm3 (0.9-3.2); Lymphocytes Percent Auto 36.6 % (18.3-44.2); Mean Corpuscular HGB Conc 32.3 g/dl (32-36); Mean Corpuscular Hemoglobin 30.6 pg (26-34); Mean Corpuscular Volume 94.8 fl (80-100); Mean Platelet Volume 8.4 fl (7.4-10.4); Monocytes Absolute Auto 0.3 K/mm3 (0.1-0.6); Monocytes Percent Auto 4.9 % (2.6-8.5); Neutrophils Absolute Auto 2.8 K/mm3 (1.3-6.7); Neutrophils Percent Auto 53.8 % (45.5-73.1); Platelet Count Result 204 k/mm3 (150-375); Red Blood Count 3.27 M/mm3 (4.2-5.4); Red Cell Distribution Width 13.8 % (11.5-14.5); White Blood Count 5.1 K/mm3 (4.5-10.0)
[2023-06-23 06:25] LABS: Anion Gap 5 mmol/L (8-16); Blood Urea Nitrogen 19 mg/dL (7-17); Calcium 9.3 mg/dL (8.4-10.2); Carbon Dioxide 30 mmol/L (22-30); Chloride 104 mmol/L (98-107); Estimated CRCL calculation 100 ml/min; Estimated Glomerular Filt Rate > 60; Glucose 123 mg/dL (65-110); Potassium 3.9 mmol/L (3.4-5.0); Sodium 139 mmol/L (137-145)
[2023-06-23 08:00] VITALS: PULSE 64
[2023-06-23] MEDS: ASPIRIN 81 MG ENTERIC TABLET PO (08:37)
[2023-06-23] MEDS: ATORVASTATIN 40 MG TABLET 80 MG PO (08:37)
[2023-06-23] MEDS: DULoxetine HCL 60 MG CAPSULE.DR PO (08:37)
[2023-06-23] MEDS: GABAPENTIN 300 MG CAPSULE 600 MG PO (08:37)
[2023-06-23] MEDS: carBAMazepine 200 MG TABLET 400 MG PO (08:37)
[2023-06-23] MEDS: ACYCLOVIR 400 MG TABLET PO (08:37)
[2023-06-23] MEDS: LOSARTAN POTASSIUM 25 MG TABLET PO (08:37)
--- NOTE | 2023-06-23 08:39 | PM.DS ---
DS: Admitting Diagnosis Discharge Date 06/23/2023 Admitting Diagnosis Chest pain DS: Discharge Diagnosis Discharge Diagnosis (1) Hypertension: Code(s): I10 - Essential (primary) hypertension Status: Acute (2) Chest pain: Qualifiers: Chest pain type: unspecified Qualified Code(s): R07.9 - Chest pain, unspecified Code(s): R07.9 - Chest pain, unspecified Status: Acute Assessment and Plan: Troponin are negative. EKGs are unchanged compared to old EKG. Has been chest pain free now. Lexiscan stress test was not able to be completed due to anxiety, patient declined testing while inpatient -start ASA 81mg once daily. Patient recently was on Pravastatin at home -- given her diabetes, she should be on a high intensity statin. Stop home medication Pravastatin -start high-intensity Atorvastatin. Patient requests to be discharged home reporting she will follow up outpatient with Cardiology if she will undergo stress test (3) LISA (obstructive sleep apnea): Code(s): G47.33 - Obstructive sleep apnea (adult) (pediatric) Status: Acute (4) Anemia: Code(s): D64.9 - Anemia, unspecified Status: Acute Assessment and Plan: Hemoglobin stable at 10.0 (5) Diabetes mellitus: Code(s): E11.9 - Type 2 diabetes mellitus without complications Status: Chronic Assessment and Plan: Resume home medication metformin Plan Patient was seen by Cardiology, here is consultation below: Consult date/time: 06/22/23? 11:08 Requesting physician: Fareed Mack MD Consult reason: chest pain Reason For Visit: Chest Pain Narrative: We are consulted for chest pain. This is a 53 year old female with morbid obesity, type 2 diabetes mellitus, hypertension, hyperlipidemia, LISA, GERD, depression who presented to [place] [facility] for chest pain. Was previously seeing Dr. Klein, last visit was in July 2022. MPI had been ordered at that time, but not done. Patient reports that she developed left arm discomfort yesterday and had left sided chest pain that began around 7:30 PM last night and became progressively worse. Given ASA and NTG by EMS which helped relieve the pain. ER workup showed negative troponins. Chest CTA with no PE, no acute findings. EKG with sinus rhythm with STTW abnormality in the high lateral leads, which is unchanged compared to prior EKG. Patient has remained chest pain free overnight. Of note, patient states she is currently under a lot of stress as she is going through a divorce. Her sees Dr. 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 DS: Summary Hospital Course Reason for hospitalization: Narrative: This is a 53-year-old female with past medical history significant for morbid obesity, COPD/emphysema, type diabetes mellitus, pseudo-seizure, hypertension.? Patient presents to emergency room due to chest pain localized to precordial area states that feels like an elephant sitting on chest started at around 7:30 a.m. in the evening at the time of my visit patient states that pain is on and off it is now worse with a deep breath not related to food intake has been her usual state of health up until this time although expresses that she is under a lot of stress due to undergoing divorce.? Denies any nausea, vomiting, shortness of breath, abdominal pain, vomiting, syncope or near-syncope, no leg swelling, no fevers no rigors no chills no cough no sputum production. Hospital Course: Interval history: This is a 53-year-old female with past medical history significant for morbid obesity, COPD/emphysema, type diabetes mellitus, pseudo-seizure, hypertension.? Patient presents to emergency room due to chest pain localized to precordial area states that feels like an elephant sitting on chest started at around 7:30 a.m. in the evening at the time of my visi
== END 2023-06-23 09:35 | disposition home or self-care (01) ==
LOC: ANHED 23:47 → ANHIMU 06-22 01:49 → ANH3MED 06-23 08:46 → ANHIMU 06-24 09:51
PROVIDERS: Admitting Provider Internal Medicine; Emergency Provider Student in an Organized Health Care Education/Training Program; PCP Internal Medicine; Visit Provider Nurse Practitioner
DX: R07.9 Chest pain, unspecified (principal); R53.81 Other malaise; G47.33 Obstructive sleep apnea (adult) (pediatric); Z99.89 Dependence on other enabling machines and devices; I49.8 Other specified cardiac arrhythmias; E66.01 Morbid (severe) obesity due to excess calories; Z68.43 Body mass index [BMI] 50.0-59.9, adult; I11.9 Hypertensive heart disease without heart failure; E78.00 Pure hypercholesterolemia, unspecified; E04.2 Nontoxic multinodular goiter; D64.9 Anemia, unspecified; K21.9 Gastro-esophageal reflux disease without esophagitis; J43.9 Emphysema, unspecified; E11.9 Type 2 diabetes mellitus without complications; F44.5 Conversion disorder with seizures or convulsions; F41.9 Anxiety disorder, unspecified; E78.5 Hyperlipidemia, unspecified; F31.9 Bipolar disorder, unspecified; Z63.5 Disruption of family by separation and divorce; Z86.69 Personal history of other diseases of the nervous system and sense organs; Z87.891 Personal history of nicotine dependence; Z79.51 Long term (current) use of inhaled steroids; Z79.84 Long term (current) use of oral hypoglycemic drugs; Z79.1 Long term (current) use of non-steroidal anti-inflammatories (NSAID); Z79.899 Other long term (current) drug therapy; Z82.49 Family history of ischemic heart disease and other diseases of the circulatory system
CPT/HCPCS: 36415; 71045; 71275; 78452; 80048; 80053; 81003; 81025; 82948; 83036; 83690; 83880; 84478; 84484; 85025; 85380; 85610; 85730; 87637; 93005; 96374; 97161; 99285; A9270; A9502; C8929; G0378; J1815; Q9957; Q9967

== ENCOUNTER 2023-07-29 13:42 | Emergency (ER) | payer MEDICARE, MEDICAID, SELFPAY ==
[2023-07-29] VITALS (11 sets, daily range): BP systolic 130–170; BP diastolic 81–119; PULSE 60–88; RESP 11–34; TEMP 36.6; O2SAT 96–100
--- NOTE | 2023-07-29 14:03 | ECG_ITS ---
Measurements Intervals [place] Rate: 69 P: 38 HI: 183 QRS: 13 QRSD: 102 T: 86 QT: 405 QTc: 437 Interpretive Statements SINUS RHYTHM BASELINE ARTIFACT LOW QRS VOLTAGE IN PRECORDIAL LEADS [QRS DEFLECTION < 1.0 mV IN CHEST LEADS] BORDERLINE ECG COMPARED TO ECG 06/22/2023 13:21:43 NO SIGNIFICANT CHANGES Electronically Signed On 07-30-2023 14:33:02 [employer] SALESPERSON by Tito Llanes M.D.
--- NOTE | 2023-07-29 18:01 | PC.NURSE ---
a patient in the waiting room approached intake desk and states That lady is having a seizure. This RN ambulated to area to find pt still in the w/c, A&Ox4, and no loss of bowel/bladder control. Pt states has history of pseudoseizures brought on by stress. Pt visitor states I hope I didnt cause that by what I was talking about before this happened. Pt Vitals were taken, VSS. Pt is aware of events/able to recall episode. Directed in w/c back to waiting room.
--- NOTE | 2023-07-29 21:50 | ED.GENADULT ---
HPI - General Adult General Chief complaint: Seizure Stated complaint: seizure Time Seen by Provider: 07/29/23 21:26 History of Present Illness HPI narrative: This is a 53-year-old female with history of pseudo nonepileptic seizures and high blood pressure presenting for blood pressure. Patient states that her blood pressure is elevated at 1 70/109 at home earlier today. She called her primary care physician instructed her to increase her dose of antihypertensive. Then while she was at the store she had 1 of her pseudo non epileptic seizures. She notes that she has these frequently when she is stressed out. The patient says that she is in the middle of a very messy divorce and that she has very high levels of stress at this time. Patient is here to make sure that her blood pressure and seizures are not related. Related Data Home Medications Medication Instructions Recorded Confirmed diazepam 5 mg tablet 5 mg PO TID PRN Anxiety 04/06/19 06/22/23 duloxetine 60 mg capsule,delayed 60 mg PO DAILY 04/08/19 06/22/23 release quetiapine 300 mg tablet 400 mg PO HS 04/04/20 06/22/23 sertraline 100 mg tablet 100 mg PO HS 04/04/20 06/22/23 carbamazepine 200 mg tablet 400 mg PO TID 06/25/22 06/22/23 losartan 25 mg tablet 25 mg PO DAILY 08/09/22 06/22/23 gabapentin 300 mg capsule 600 mg PO TID 06/22/23 06/22/23 quetiapine 25 mg tablet 25 mg PO HS 06/22/23 06/22/23 sumatriptan succinate 25 mg tablet 25 mg PO DAILY PRN Headache 06/22/23 06/22/23 Allergies Allergy/AdvReac Type Severity Reaction Status Date / Time shellfish derived Allergy Mild Swelling Verified 05/06/23 11:26 of Lip/Tongue/Throat amoxicillin Allergy Unknown unknown Verified 05/06/23 11:26 buspirone [From BuSpar] Allergy Unknown unknown Verified 05/06/23 11:26 cephalexin [From Keflex] Allergy Unknown Unknown Verified 05/06/23 11:26 bee venom protein (honey bee) Allergy Swelling Verified 05/06/23 11:26 [bees] Sulfa (Sulfonamide Allergy Swelling Verified 05/06/23 11:26 Antibiotics) of Lip/Tongue/Throat egg AdvReac Mild Abdominal Verified 05/06/23 11:26 Pain ephedrine AdvReac Vomiting Verified 05/06/23 11:26 PMFSH Past Medical History Medical History Abnormal CT scan, kidney Allergic rhinitis Anal fissure Noted on colonoscopy from December of [address] Rodriguez Anemia Anxiety Arthritis of knee, right Asthma B12 deficiency Bipolar disorder Cholecystectomy planned Chondromalacia of right patellofemoral joint Chronic anemia COPD (chronic obstructive pulmonary disease) PFTs 2011 demonstrated mild obstructive disease Cystitis Degenerative joint disease of knee Degenerative joint disease of thumb Depression Diabetes mellitus Echocardiogram abnormal Echocardiogram October 2014 demonstrated EF of 60-65% with elevated right atrial pressures of 10-15 mmHg Eczema Essential (primary) hypertension Fatigue Former smoker Quit 1995 age 29; highest amount was 1.5 ppd for up to 19 years, 45 pack years. Gastro-esophageal reflux disease without esophagitis Health care maintenance Hepatosplenomegaly On imaging from November 2017 Herpes simplex type 2 infection Hyperlipidemia Injury of right thigh Internal hemorrhoids On colonoscopy from December 2014 Kidney stones Knee effusion, right Knee joint effusion Knee sprain Left knee DJD Left knee pain Morbid obesity with BMI of 50.0-59.9, adult Multiple personality disorder Per patient report Myalgia Physical deconditioning Polycystic kidney disease Poor balance Psychogenic nonepileptic seizure PTSD (post-traumatic stress disorder) Right knee DJD Sleep apnea in adult With recommended CPAP 12 on polysomnogram from 2015 Strain of calf muscle Strain of right calf muscle Tonsillectomy planned Trigger thumb Trochanteric bursitis, right hip UTI (urinary tract infection) Vaginal candidiasis Surgical History Surgical History (Reviewed 07/29/23
[2023-07-29] MEDS: diazePAM INJ (*CRX) 10 MG/2 ML SYRINGE 5 MG IV PUSH (22:00)
== END 2023-07-29 23:29 | disposition home or self-care (01) ==
LOC: ANHED 22:01
PROVIDERS: Emergency Provider Emergency Medicine; PCP Internal Medicine
DX: I10 Essential (primary) hypertension (principal); F44.5 Conversion disorder with seizures or convulsions; J44.9 Chronic obstructive pulmonary disease, unspecified; E11.9 Type 2 diabetes mellitus without complications; E53.8 Deficiency of other specified B group vitamins; D64.9 Anemia, unspecified; E78.5 Hyperlipidemia, unspecified; E66.01 Morbid (severe) obesity due to excess calories; Z68.43 Body mass index [BMI] 50.0-59.9, adult; K21.9 Gastro-esophageal reflux disease without esophagitis; M17.0 Bilateral primary osteoarthritis of knee; M19.049 Primary osteoarthritis, unspecified hand; F41.9 Anxiety disorder, unspecified; F43.10 Post-traumatic stress disorder, unspecified; F31.9 Bipolar disorder, unspecified; Z87.891 Personal history of nicotine dependence; Z87.440 Personal history of urinary (tract) infections; Z90.710 Acquired absence of both cervix and uterus; Z90.49 Acquired absence of other specified parts of digestive tract; Z79.84 Long term (current) use of oral hypoglycemic drugs; R94.31 Abnormal electrocardiogram [ECG] [EKG]
CPT/HCPCS: 93005; 96374; 99284; J3360